=== PATIENT | female | born 1980 | race Caucasian/White ===

== ENCOUNTER 2018-06-15 19:51 | Emergency (ER) | payer MEDICAID, SELFPAY ==
[2018-06-15 20:10] VITALS: BP 125/53; PULSE 71; RESP 16; TEMP 37; O2SAT 98
--- NOTE | 2018-06-15 21:02 | ED.GENADUL ---
Disposition Clinical Impression: Jaw pain, non-TMJ Disposition: HOME Condition: Fair Additional Instructions: Encourage hydration. Tylenol and/or ibuprofen as needed for discomfort. You may take 1000 mg of Tylenol 4 times daily, 600 mg of ibuprofen 4 times daily. May try ice pack or heat to affected area. Please follow-up with primary care for further evaluation. If you develop increased swelling, fever/chills, increased pain or other new/worsening symptoms please seek care urgently once again. Referrals: More Parr MD [Primary Care Provider] - Medical Decision Making - Medical Decision Making Patient presents today with chief complaint of pain under the central submandibular area. She reports that this pain has waxed and waned for quite some time. However, it has been persistent over the past 3 days. No fevers or chills. Is otherwise feeling well. On exam, she is having exquisite tenderness with palpation under the chin. However, I am unable to palpate this area of swelling patient is noting. I do not see any defect in the skin. No discoloration. No area of fluctuance to suggest an abscess. Intraoral exam is without acute abnormality. Advise at this point I do not see any acute pathology. No associated evidence of abscess. I am unable to palpate this abnormality the patient is describing. However, pain is elicited with palpation to the affected area. Advise follow-up with primary care. Advised she may continue with Tylenol and/or ibuprofen as needed for discomfort. All of her questions and concerns were addressed and she is in agreement this plan. History of Present Illness - General Chief complaint: RashLesion Stated complaint: mandibular nodule Time Seen by Provider: 06/15/18 21:02 Source: patient, family, RN notes reviewed Mode of arrival: ambulatory Limitations: no limitations - History of Present Illness Initial comments: Patient is a 38-year-old female presenting today with chief complaint of acute on chronic submandibular pain. She reports that she has noted pain directly under the chin for the past 3 days. She denies any fevers or chills. States that the pain can occasionally radiate laterally towards the right side of the jaw. No fevers or chills. No difficulty speaking, chewing or swallowing. States that she has noted this area to be tender previously. States his pain has waxed and waned for several years but typically is nonexistent. - Related Data Paroxetine HCl [Paxil] 50 mg PO DAILY tab-cap 04/05/13 Naproxen [Naprosyn] 500 mg PO Q12H PRN #60 tab-cap 04/15/13 Allergies Allergy/AdvReac Type Severity Reaction Status Date / Time diphenhydramine HCl Allergy Intermediate Unverified 06/15/18 20:09 [From Benadryl] pseudoephedrine HCl Allergy Intermediate Unverified 06/15/18 20:09 [From Sudafed] Penicillins Allergy Mild Unverified 06/15/18 20:09 aspirin AdvReac Intermediate EPISTAXIS Unverified 06/15/18 20:09 Review of Systems Constitutional: no symptoms reported. denies: chills, fever ENT: as per HPI Respiratory: no symptoms reported Cardiovascular: denies: chest pain Gastrointestinal: denies: nausea, vomiting Skin: denies: rash, lesions, change in color Neurological: denies: headache Past Medical History - Past Medical History Medical history: no medical history Surgical history: no surgical history - Social History Living Situation: lives with family General Exam - General Limitations: no limitations General appearance: alert, in no apparent distress - Head Head exam: Present: atraumatic - Eye Eye exam: Present: normal apperance - ENT ENT exam: Present: normal exam, normal orophraynx, mucous membranes moist, TM's normal bilaterally, normal external ear exam, other (Patient is endorsing pain with palpation directly under the frontal submandibular area. She is feeling swelling. I am unable to appreciate any deformity. No erythema. No opening the skin. No area of fluctuance to suggest an abscess. Intraoral exam is without any abnormality. No swelling noted under the tongue. No pain elicited with palpation over the lingual or buccal area of the gumline. No intraoral swelling.) - Neck Neck exam: Present: normal inspection. Absent: tenderness, lymphadenopathy - Respiratory Respiratory exam: Present: normal lung sounds bilaterally. Absent: respiratory distress - Cardiovascular Cardiovascular Exam: Present: regular rate, normal rhythm, normal heart sounds - Neurological Exam Neurological exam: Present: alert, normal gait - Psychiatric Psychiatric exam: Present: normal affect, normal mood - Skin Skin exam: Present: warm, dry, normal color Course Vital Signs - 24 hr 06/15/18 20:10 Temperature 37.0 C Pulse 71 Respiratory 16 Rate Blood Pressure 125/53 Pulse Oximetry 98
== END 2018-06-15 21:07 | disposition home or self-care (01) ==
PROVIDERS: Emergency Provider Physician Assistant; PCP Family Medicine
DX: R68.84 Jaw pain (principal)
CPT/HCPCS: 99282

== ENCOUNTER 2018-08-18 14:58 | Outpatient (REF) | payer MEDICAID, SELFPAY ==
--- NOTE | 2018-08-18 14:30 | PAPFT_PTH ---
PATIENT: Kimani Perez LOC: [facility] U#:[id number] AGE/SX: 38/F ROOM: RE08/18/[address]: OTILIA Cunha : 1980 BED: DIS: 08/18/2018 SPEC #: [id number] RECD: 08/18/18 17:59 STATUS: CLAUDE REQ #: [id number] MAGY: 08/18/18 14:[address]: Eileen Vaca DEPT: [facility] Cytology RECD BY: Kaylee Renteria ENTERED: 08/18/18 17:59 SP TYPE: PAPFT OTHR DR: More Parr V Tissues: 1 - CX/ENDOCX FOR PAP SMEARS Procedures: PAP THIN PREP/UVM Screening HPV DNA PROBE Comments: [id number]
[2018-08-20 14:27] LABS: Chlamydia Result Negative; GC Result Negative; Specimen Description CERVIX
== END 2018-08-18 15:18 ==
LOC: LBN 14:58
PROVIDERS: PCP Family Medicine; Visit Provider Nurse Practitioner Family
DX: Z11.3 Encounter for screening for infections with a predominantly sexual mode of transmission (principal); Z12.4 Encounter for screening for malignant neoplasm of cervix; Z11.51 Encounter for screening for human papillomavirus (HPV)
CPT/HCPCS: 87491; 87591; 88142; 87624

== ENCOUNTER 2019-08-18 17:24 | Outpatient (REF) | payer MEDICAID, SELFPAY ==
[2019-08-18 20:14] LABS: Abs Immature Grans 0.01 k/cumm (0.0-0.09); Absolute Basophil Count 0.02 k/cumm (0.0-0.2); Absolute Eosinophil Count 0.23 k/cumm (0.0-0.7); Absolute Lymphocyte Count 3.13 k/cumm (1.2-3.4); Absolute Monocyte Count 0.41 k/cumm (0.11-0.7); Absolute Neutrophil Count 3.37 k/cumm (1.2-6.7); Basophils % 0.3; Eosinophils % 3.2; HCT 41.6 % (36.0-46.0); Immature Grans % 0.1; Lymphocytes % 43.7; Mean Corp. HGB Concentration 33.7 g/dL (32.0-36.0); Mean Platelet Volume 10.7 fL (8.0-11.0); Monocytes % 5.7; Platelet Count 237 x1000/uL (130-400); RBC 4.38 m/cumm (4.00-5.20); RBC Distribution Width 12.6 % (11.7-14.6); White Blood Cell Count 7.17 k/cumm (4.4-10.8)
[2019-08-18 20:22] LABS: ALT 23 U/L (14-59); AST 13 U/L (15-37); Albumin 3.9 g/dL (3.4-5.0); Alkaline Phosphatase 80 U/L (46-116); Anion Gap 9.8 mmol/L (3-11); BUN 10 mg/dL (7-18); Bilirubin, Total 0.2 mg/dL (0.2-1.0); CO2 24.2 mmol/L (21.0-32.0); CREATININE 0.65 mg/dL (0.55-1.02); Chloride 104 mmol/L (98-107); Glucose 88 mg/dL (70-100); Potassium 4.5 mmol/L (3.5-5.1); Sodium 138 mmol/L (136-145); Total Protein 6.9 g/dL (6.4-8.2)
== END 2019-08-18 17:44 ==
LOC: NCHCN 17:24
PROVIDERS: PCP Family Medicine; Visit Provider Physician Assistant Medical
DX: K21.9 Gastro-esophageal reflux disease without esophagitis (principal)
CPT/HCPCS: 80053; 85025

== ENCOUNTER 2020-04-10 00:38 | Outpatient (CLI) | payer MEDICAID, SELFPAY ==
--- NOTE | 2020-04-10 | DI.US_ITS ---
EXAM: US THYROID CLINICAL HISTORY: ENLARGED THYROID, E04.9. TECHNIQUE: Ultrasound thyroid performed using standard protocol. COMPARISON: No exams were available for comparison FINDINGS: The right lobe measures 4.6 x 1.0 x 1.4 cm. There is a 3 mm cystic well-circumscribed nodule in the upper pole. There is normal blood flow to the right lobe of the thyroid gland. No suspicious right thyroid nodules are seen. The left lobe measures 4.2 x 1.0 x 1.5 cm. There is a solid avascular 4 mm isoechoic nodule in the u pper pole. Nodule is round with well-circumscribed smooth borders. No echogenic foci are seen. No suspicious left thyroid nodules are seen. There is normal blood flow to the left lobe of the thyroid gland. The isthmus is within normal limits at 1.8 mm. IMPRESSION: No suspicious thyroid nodules. No evidence of thyromegaly. DATA REPOSITORY:
== END 2020-04-10 00:58 ==
PROVIDERS: PCP Family Medicine; Visit Provider Physician Assistant Medical
DX: E07.89 Other specified disorders of thyroid (principal); E04.2 Nontoxic multinodular goiter
CPT/HCPCS: 76536

== ENCOUNTER 2021-12-03 15:45 | Outpatient (REF) | payer MEDICAID, SELFPAY ==
--- NOTE | 2021-12-03 15:30 | PAPFT_PTH ---
PATIENT: Kimani Perez LOC: [facility] U#:[id number] AGE/SX: 41/F ROOM: RE12/03/[address]: OTILIA Cunha : 1980 BED: DIS: 12/03/2021 SPEC #: [id number] RECD: 12/03/21 18:19 STATUS: NISSARajesh REDonald #: [id number] MAGY: 12/03/21 15:[address]: Eileen Vaca DEPT: [facility] Cytology RECD BY: Kaylee Renteria ENTERED: 12/03/21 18:19 SP TYPE: PAPFT OTHR DR: More Parr V Tissues: 1 - CX/ENDOCX FOR PAP SMEARS Procedures: PAP THIN PREP/UVM Screening HPV DNA PROBE Comments: [id number]
[2021-12-05 15:31] LABS: Chlamydia Result Negative (Negative); GC Result Negative (Negative)
== END 2021-12-03 15:46 | disposition home or self-care (01) ==
LOC: LBN 15:45
PROVIDERS: PCP Family Medicine; Visit Provider Nurse Practitioner Family
DX: Z11.3 Encounter for screening for infections with a predominantly sexual mode of transmission (principal); Z12.4 Encounter for screening for malignant neoplasm of cervix; Z11.51 Encounter for screening for human papillomavirus (HPV)
CPT/HCPCS: 87491; 87591; 88142; 87624

== ENCOUNTER 2021-12-25 14:58 | Outpatient (REF) | payer MEDICAID, SELFPAY ==
[2021-12-25 19:36] LABS: Abs Immature Grans 0.01 10^3/uL (0.0-0.06); Absolute Basophil Count 0.03 10^3/uL (0.0-0.2); Absolute Eosinophil Count 0.19 10^3/uL (0.0-0.7); Absolute Lymphocyte Count 3.27 10^3/uL (1.2-3.4); Absolute Monocyte Count 0.44 10^3/uL (0.1-0.8); Basophils % 0.4; Eosinophils % 2.3; HCT 38.7 % (36.0-46.0); Immature Grans % 0.1; Lymphocytes % 39.2; MCH 32.4 pg (27.0-33.0); MCHC 33.6 % (32.0-36.0); MCV 96.5 fL (80-95); MPV 11.3 fL (8.0-11.0); Monocytes % 5.3; Neutrophils % 52.7; Nucleated RBC 0 %; Platelet Count 221 10^3/uL (130-400); RBC 4.01 10^6/uL (3.93-5.22); RDW 12.5 % (11.7-14.6); RDW-SD 44.9 fL; WBC 8.34 10^3/uL (4.4-10.8)
[2021-12-25 19:46] LABS: ALT 14 U/L (14-59); AST 16 U/L (15-37); Albumin 3.7 g/dL (3.4-5.0); Alkaline Phosphatase 72 U/L (46-116); Anion Gap 10.3 mmol/L (3-11); BUN 12 mg/dL (7-18); Bilirubin, Total 0.2 mg/dL (0.2-1.0); CO2 24.7 mmol/L (21.0-32.0); CREATININE 0.7 mg/dL (0.55-1.02); Calcium 8.9 mg/dL (8.5-10.1); Chloride 104 mmol/L (98-107); Glucose 93 mg/dL (74-106); Lipase 79 U/L (73-393); Potassium 4.2 mmol/L (3.5-5.1); Sodium 139 mmol/L (136-145); Total Protein 6.6 g/dL (6.4-8.2)
== END 2021-12-25 14:59 | disposition home or self-care (01) ==
LOC: NCHCN 14:58
PROVIDERS: PCP Family Medicine; Visit Provider Physician Assistant Medical
DX: K21.9 Gastro-esophageal reflux disease without esophagitis (principal)
CPT/HCPCS: 80053; 83690; 85025

== ENCOUNTER 2021-12-27 01:34 | Outpatient (CLI) | payer MEDICAID, SELFPAY ==
--- NOTE | 2021-12-27 09:30 | DI.US_ITS ---
Exam(s) US ABDOMEN EXAM: US ABDOMEN INDICATION: GERD, K21.9 COMPARISON: US US THYROID from 04/10/2020 TECHNIQUE: Ultrasound abdomen performed using standard protocol FINDINGS: Abdominal ultrasound was performed according to the usual protocol. The liver is normal in size and shape. No focal hepatic lesion seen. There is no evidence of cholelithiasis or biliary dilatation. No gallbladder wall thickening or peric holecystic fluid collection. Portal venous flow is hepatopetal. Pancreas appears intact as visualized. Spleen is unremarkable in appearance with no focal lesion. Kidneys are normal in size and shape. No renal mass, hydronephrosis, or nephrolithiasis. Abdominal aorta and IVC are of normal diameter. IMPRESSION: Negative abdominal ultrasound .
== END 2021-12-27 01:54 ==
PROVIDERS: PCP Family Medicine; Visit Provider Physician Assistant Medical
DX: K21.9 Gastro-esophageal reflux disease without esophagitis (principal)
CPT/HCPCS: 76700

== ENCOUNTER → 2022-05-20 01:40 | Outpatient (CLI) | payer MEDICAID, SELFPAY | PROVIDERS: PCP Family Medicine; Visit Provider Nurse Practitioner Family ==

== ENCOUNTER 2022-08-09 00:51 | Outpatient (CLI) | payer MEDICAID, SELFPAY ==
--- OUTSIDE RECORDS SUMMARY | 2022-08-09 00:53 | XMS_ITS | Encounter Summary ---
:1980 Author Organization [facility] Address [address] [place] [address] Care Team Providers Name Role Phone BooneKristina Nani PHP DEVELOPER Primary Care Provider Encounter Details Date Type Department Care Team Description 02/17/2007 Results Only [facility] - Kristina Oliveros CNM [facility] [address] [place] [address] Social History Tobacco Use Types Packs/Day Years Used Date Never Assessed Sex Assigned at Date Recorded Not on file documented as of this encounter Plan of Treatment Not on filedocumented as of this encounter Procedures Procedure Name Priority Date/Time Associated Diagnosis Comme nts CYTOPATHOLOGY Routine 02/17/2007 0:00 EDT Results for this procedure are i n the results section . documented in this encounter Results CYTOPATHOLOGY (02/17/2007 0:00 EDT) Pathology Report: CYTOPATHOLOGY REPORT [facility] Reports generated via electronic interface contain zuly ginal data; however they are lacking the format of the original re port. Caution should be taken when reading/interpreting unfo rmatted reports. Name: ? KIMANI PEREZ ? Accession #: ? [id number] : ? 1980 (Age: 27) ??F ?Collect Date: ? 05/0 10/2006 Location: ? [facility] ? Receive Date : ? 02/19/2007 Provider: ?KRISTINA MACKEY CNM Copy to: ? Specimen/Source: ? ThinPrep Pap Test, Cervix/Endocervix, processed on [employer] ThinPrep Imaging System, with manual evaluation Last Menstrual Period: ? 01/10/07 Other: ? HPVA - HPV testing requested if ASC-US on the current ThinPrep Pap test. ? SPECIMEN ADEQUACY ? Satisfactory for Evaluation - transformation zone component present GENERAL CATEGORIZATION ? Negative for Intraepithelial Lesion or Malignan cy ? Document reviewed and electronically signed by: ? LEONARD Mena(ASCP) ? Report Date: ??02/23/2007 11:43 End of Report Specimen Performing Organization Address City/State/ZIP Code Phon e Number [facility] [address] [place] [address] [facility] [address] [place] [address] documented in this encounter Visit Diagnoses Not on filedocumented in this encounter Care Teams Rug Cleaning Supervisor Relationship Specialty Start Date End Date Kristina Shook NP PCP - General 07/18/09 [facility] [address] [place], [place] [address] documented as of this encounter
--- OUTSIDE RECORDS SUMMARY | 2022-08-09 00:53 | XMS_ITS | Encounter Summary ---
:1980 Author Organization [facility] Address [address] [place] [address] Care Team Providers Name Role Phone Kristina Shook LUZ MARIA Primary Care Provider Encounter Details Date Type Department Care Team Description 11/06/[address] [facility] - Alvarado Moore MD conversion [address] [place] [address] Social History Tobacco Use Types Packs/Day Years Used Date Never Assessed Sex Assigned at Date Recorded Not on file documented as of this encounter Plan of Treatment Not on filedocumented as of this encounter Procedures Procedure Name Priority Date/Time Associated Diagnosis Comme nts SURGICAL PATHOLOGY Routine 11/06/2006 0:00 EST Re sults for this procedure are i n the results section. documented in this encounter Results SURGICAL PATHOLOGY (11/06/2006 0:00 EST) Pathology Report: SURGICAL PATHOLOGY REPORT [facility] Reports generated via electronic interface contain zuly ginal data; LAB however they are lacking the format of the original re port. Caution should be taken when reading/interpreting unfo rmatted reports. Name: ? KIMANI PEREZ ? Accession #: ? [id number] ? : ? 1980 (Age: 26) ??F ? Collect Date: ? 11/06/2006 ? Location: ? [facility] ? Receive Date: ? 007 ? Provider: ALVARADO FERNANDEZ MD Copy to: ? Final Pathologic Diagnosis: ? Soft tissue, present in vaginal vault, evacuati on: 1. ?Necrotic ti ssue with fibrinous exudate and unorganized blood clot with focal acute and chronic inflammatory cell debris with hemosiderin. 2. ? No viable chorionic villi, trophoblasti c or tissue identified. Document reviewed and electronically signed by: KIARRA PABON MD Report ??Date: 11/10/2006 21:28 By the signature above, the attending physician certif ies that he/she has personally conducted a gross and/or microscopic examin ation of the described specimens and rendered or confirmed the above diagnosi s. Specimen(s) Received: ? Mass passed from vagina Clinical History: ? 14 weeks , tissue passed per vagi na, clot seen on U/S in early ; prob passed now Gross Description: ? Received in formalin labelled Perez and vag vault is a 7.5 x 6.5 x 1.5 cm aggregate of pale red-jiménez blood clot as well as 2.5 x 2.0 x 1.0 cm aggregate of light jiménez mucin ous material. ??Sections reveal no discernible parts, villous-like tissue, or decidua. ??Animal Scientist sections are submitted as (A1) to (A3). ??([facility] End of Report Specimen Performing Organization Address City/State/ZIP Code Phon e Number [facility] [address] [place] [address] [facility] [address] [place] [address] documented in this encounter Visit Diagnoses Not on filedocumented in this encounter Care Teams Tax Associate Attorney Relationship Specialty Start Date End Date Kristina Shook NP PCP - General 07/18/09 [facility] [address] [place] [address] documented as of this encounter
--- OUTSIDE RECORDS SUMMARY | 2022-08-09 00:53 | XMS_ITS | Encounter Summary ---
:1980 Author Organization [facility] [place] [address] Care Team Providers Name Role Phone Kristina Willard APRN Primary Care Provider Reason for Visit Reason Comments Low Back Pain right buttocks Encounter Details Date Type Department Care Team Description 09/17/2011 Office Visit Pain Management at Jennifer Ellsworth DO Sacroiliitis (Primary [facility] Dx) [facility] [place] [phone] Social History Tobacco Use Types Packs/Day Years Used Date Current Every Day Smoker Sex Assigned at Date Recorded Not on file documented as of this encounter Last Filed Vital Signs Vital Sign Reading Time Taken Comments Blood Pressure 103/63 09/17/2011 2:08 PM EST Pulse 73 09/17/2011 2:08 PM EST Temperature - - Respiratory Rate 16 09/17/2011 2:08 PM EST Oxygen Saturation 98% 09/17/2011 2:08 PM EST Inhaled Oxygen Concentration - - Weight - - Height 163.8 cm (5' 4.5) 09/17/2011 1:00 PM EST Body Mass Index - - documented in this encounter Patient Instructions Patient InstructionsLashell Blas RN - 09/17/2011 1:53 PM EST Pain Management Center Discharge Instructions: You were seen by Dr. Jennifer Ellsworth DO and Dr. Ben Hernández who performed right SI joint injection. [x] You may resume your normal activities: tomorrow. You may shower today. DO NOT tub bathe, use whirlpools, hot tubs or pool therapy for 2 days. Remove Band-Aid(s) later today/tomorrow. Do not drive until tomorrow. Use caution walking/climbing stairs as you may be unsteady on your feet. You may use your usual medications, including pain medications, as directed, unless otherwise instructed. You may use an ice pack as needed for the first 24 hours, on for 20 minutes then off for 20 minutes.Do not apply heat today. Attempt to empty your bladder 4-6 hours after your procedure. You received the following medications: Lidocaine, Omnipaque (contrast dye) and Triamcinolone 40 mg. During regular business hours, please phone the Pain Management Center at for appointments or with any questions or if the following or other troubling symptoms develop: 2) Localized swelling, redness or drainage at the injection site(s). 3) Temperature of 101 degrees that lasts for more than 4 hours. After 5 PM or on weekends, call and ask for Pain Clinic provider on-call. If you are unable to reach the Pain Management Center and have a complication, please call your Primary Care Provider or proceed to your local emergency department. Lashell Blas RNpaid intern Center Post -Procedure Pain Log Patient: Kimani Perez [id number] It is important for you to keep track of your pain after your procedure that took place 09/17/2011. This information will help your Provider to determine how to help reduce your pain. Today you had a procedure for pain in your right buttocks. Your pain level before the procedure in this area was 5/10. Your pain level immediately after your procedure was 0/10. Time Pain Score Comments 1 hour 2 hours 3 hours 4 hours Please call the nurse in the Pain Management Center a day or two after your procedureand report the information above. She will assess your response to the procedure, and will recommendappropriate follow-up. documented in this encounter Progress Notes Jennifer Ellsworth, DO - 09/18/2011 4:56 AM EST I was the attending physician supervising the resident in the above care and I was present with the resident for the entire procedure. DO Eddie Lara [facility] [place] [id number] Dept: [phone] Lashell Blas RN - 09/17/2011 1:49 PM EST Pre-Procedure Screening Questions: 1. Status: No 2. 3. Patient states they have a emergency medical technician/driver to transport after procedure? Yes 4. Patient taking antibiotics at present? No 5. NPO per Pain Management Center protocol? No 6. 7. Patient diabetic: No 8. Patient routinely taking anticoagulants ? No Patient Vital Signs documented in Doc Flowsheets associated with this encounter. Patient Discharge Instructions were reviewed with patient and copy provided to patient. documented in this encounter Procedure Notes Ben Hernández MD - 09/17/2011 2:16 PM ESTAssociated Order(s): SI JOINT INJECTION Pre-Procedure Diagnose(s): Sacroiliitis INTRA-ARTICULAR SI JOINT INJECTION Date of Service: 09/17/2011 Patient: Kimani Perez Provider: BEN HERNÁNDEZ MD Kimani Perez has been referred to the Pain Management Center for intra- articular SI joint injection. COMMENTS: repeat R sided SI joint injection. Kimani Perez was interviewed and the medical record reviewed. There were no medical, pharmacologic, radiographic or other structural contraindications to attempting fluoroscopically guided intra-articular SI joint injection. Risks and expected side effects as well as potential benefit of the procedure were reviewed with Kimani Perez, and she voiced concerns addressed. The printed consent form was signed and witnessed. Standard time-out procedure was performed. Kimani Perez was placed in the prone position on the fluoroscopy table and automated blood pressure cuff and pulse oximeter applied. The skin entry point for approaching R SI joints was identified under the most advantageous fluoroscopic view and marked. Following thorough Chlorhexadine preparationof the skin and draping and 1% lidocaine infiltration of the skin entry point and subcutaneous tissues, a 22 gauge spinal needle was placed under fluoroscopic guidance into the R SI joint. Intra-articular placement was confirmed by a clear arthrogram resulting from the injection of 0.25ml Omnipaque 240. 2 ml 1% lidocaine and 40mg triamcinalone was injected intra-articularily with an initial reproduction of a significant component of the usual pain. Kimani Perez's vital signs were stable throughout the procedure and were as recorded in the docflowsheet by the nursing staff. If given, dosages of intravenous drugs for anxiolysis and analgesia were documented in MAR. Follow up plans and appointments were discussed with the Ms. Perez. Post procedure instruction wasgiven as documented in nursing documentation and having met discharge criteria, she was discharged from the Pain Management Center. COMMENTS: no complications. Return prn. CC: KRISTINA WILLARD APRN [email or web address] Ben Hernández MD, Pain Medicine Fellow documented in this encounter Miscellaneous Notes Miscellaneous - Jp, Curriculum And Instruction Director - 09/24/2011 10:23 AM EST documented in this encounter Plan of Treatment Not on filedocumented as of this encounter Results SI JOINT INJECTION (09/17/2011 2:19 PM EST) Jennifer Ellsworth DO PROCEDURE/MINOR SURGICAL ORD ERABLES documented in this encounter Visit Diagnoses Diagnosis Sacroiliitis - Primary Sacroiliitis, not elsewhere classified documented in this encounter Administered Medications Inactive Administered Medications - up to 3 most recent administrations Medication Order MAR Action Action Date Dose Rate Site iohexol (OMNIPAQUE) injection 1 mL Given 09/17/2011 2:18 PM EST 1 mL 1 mL, Other, ONCE PRN, 1 dose, Starting on Fri09/17/11 at 1412, Until Fri09/17/11 at 1418, Per Protocol, Routine triamcinolone acetonide (KENALOG-40) injection Given 1 11/17/2010 2:30 PM EST 40 mg 40 mg 40 mg, Intra-articular, ONCE, 1 dose, On Fri09/17/11 at 1430, Routine documented in this encounter Care Teams Lead Developer Relationship Specialty Start Date End Date Kristina Willard APRN PCP - General 09/11/10 06/16/12 documented as of this encounter
--- OUTSIDE RECORDS SUMMARY | 2022-08-09 00:53 | XMS_ITS | Encounter Summary ---
:1980 Author Organization [facility] Address [address] [place] [address] Care Team Providers Name Role Phone Kristina Shook STOPPERER ASSEMBLER Primary Care Provider Encounter Details Date Type Department Care Team Description 12/07/2004 Results Only [facility] - Richardson New MD conversion [address] [place] [address] Social History Tobacco Use Types Packs/Day Years Used Date Never Assessed Sex Assigned at Date Recorded Not on file documented as of this encounter Plan of Treatment Not on filedocumented as of this encounter Procedures Procedure Name Priority Date/Time Associated Diagnosis Comme [facility] SURGICAL PATHOLOGY Routine 12/07/2004 0:00 EST Re sults for this procedure are i n the results section. documented in this encounter Results SURGICAL PATHOLOGY (12/07/2004 0:00 EST) Pathology Report: SURGICAL PATHOLOGY REPORT [facility] Reports generated via electronic interface contain zuly ginal data; LAB however they are lacking the format of the original re port. Caution should be taken when reading/interpreting unfo rmatted reports. Name: ? KIMANI PEREZ ? Accession #: ? [id number] ? : ? 1980 (Age: 24) ??F ? Collect Date: ? 12/07/2004 ? Location: ? [facility] ? Receive Date: ? 005 ? Provider: RICHARDSON MANRIQUEZ MD Copy to: ALEJO PEDRAZA ROLL SCALE MAN ? Final Pathologic Diagnosis: ? Intrauterine contents, evacuation: 1. ?Immature chorionic villi. 2. ?Decidua. 3. ?Gestational endometrium. Document reviewed and electronically signed by: Skye Wilde MD Report ??Date: 12/11/2004 15:39 By the signature above, the attending physician certif ies that he/she has personally conducted a gross and/or microscopic examin ation of the described specimens and rendered or confirmed the above diagnosi s. Specimen(s) Received: ? Products of conception Clinical History: ? Missed Gross Description: ? Received in formalin labelled Perez and products of conception are multiple fragments of jiménez-pink soft tiss ue. ??Prominent villi are noted. ??The largest portion of villous tissue measur es 5.5 x 1.5 x 1.0 cm. ??The fragments measure in aggregate 11.0 x 8.0 x 0.5 cm. ??No p arts are identified. Aemt sections are submitted as follows: BLOCK JENKINS A1, A2 ?Aemt section of villous tissue A3 ?Aemt section of remaining f kendrick (Dr. Allen)/[facility] End of Report Specimen Performing Organization Address City/State/ZIP Code Phon e Number [facility] [address] [place] [address] [facility] [address] [place] [address] documented in this encounter Visit Diagnoses Not on filedocumented in this encounter Care Teams Security Technician Relationship Specialty Start Date End Date Kristina Shook NP PCP - General 07/18/09 [facility] [address] [place] [address] documented as of this encounter
--- OUTSIDE RECORDS SUMMARY | 2022-08-09 00:53 | XMS_ITS | Encounter Summary ---
:1980 Author Organization [facility] Address [address] [place] [address] Care Team Providers Name Role Phone BaileyKristina rosas Nani SPECIALTY DEVELOPMENT CONSULTANT Primary Care Provider Encounter Details Date Type Department Care Team Description 04/05/2013 Results Only [facility] Shekhar Vaca, [facility] Laboratory Services - [address] Barreto [address] [address] [place] [address] [phone] Social History Tobacco Use Types Packs/Day Years Used Date Never Assessed Sex Assigned at Date Recorded Not on file documented as of this encounter Plan of Treatment Not on filedocumented as of this encounter Procedures Procedure Name Priority Date/Time Associated Diagnosis Comme nts PAP TEST- RESULT Routine 04/05/2013 0:00 EDT Resu lts for this ONLY procedure are i n the results section. documented in this encounter Results PAP TEST- RESULT ONLY (04/05/2013 0:00 EDT) Pathology Report: CYTOPATHOLOGY REPORT [facility] Reports generated via electronic interface contain zuly ginal data; however they are lacking the format of the original re port. Caution should be taken when reading/interpreting unfo rmatted reports. Name: ? KIMANI PEREZ ? Accession #: ? [id number] ? : ? 1980 (Age: 33) ??F ?Collect Da te: ? 04/05/2013 ? Location: ? [facility] ? Receive Date: ? 013 ? Provider: ALEJO VACA SENIOR INFORMATICA DEVELOPER Copy to: SCOTT PÉREZ MD ? Final Report SPECIMEN ADEQUACY ? Satisfactory for Evaluation - transformation zone component present GENERAL CATEGORIZATION ? Negative for Intraepithelial Lesion or Malignan cy ?? Hormonal/Contraceptive status: Intrauterine device: Mi denisha Specimen/Source: ??Pap Test, Cervix/Endocervix, ThinPr ep Imaging System with manual evaluation Document reviewed and electronically signed by: ? Scotty Ortez, CT(ASCP) ? Report ??Date: 04/10/2013 12:14 HPV with Pap Test ? Date Ordered: ? 04/10/2013 ? Status: ?? Signed Out ?Date Complete: ? 04/13/2013 ? By: ??S ystem Interface ? Date Reported: ? 04/13/2013 ? Interpretation RESULT: Negative for HPV. No E6 or E7 mRNA is detected from HPV types 16,18,31,3 3,35, 39,45,51,52,56,58,59,66, and 68 by flat surfacer jewel media tali amplification. Comments Document reviewed and electronically signed by: ? System Interface ? Report date: 04/13/2013 By the signature above, the attending physician certif ies that he/she has personally conducted a gross and/or microscopic examin ation of the described specimens and rendered or confirmed the above diagnosi s. End of Report Specimen Performing Organization Address City/State/ZIP Code Phon e Number [facility] [address] [place] [address] SERVICES [facility] [address] [place] [address] documented in this encounter Visit Diagnoses Not on filedocumented in this encounter Care Teams Technician Support Engineer Relationship Specialty Start Date End Date Kristina Shook NP PCP - General 07/18/09 [facility] [address] [place] [address] documented as of this encounter
--- OUTSIDE RECORDS SUMMARY | 2022-08-09 00:53 | XMS_ITS | Encounter Summary ---
:[address] [facility] Address [address] [place] [address] Care Team Providers Name Role Phone Kristina Shook MUCK MINER BLASTING Primary Care Provider Encounter Details Date Type Department Care Team Description 07/04/2003 Results Only [facility] - Eileen Guerra od, SCREEN PRINT OPERATOR conversion [address] [place] [phone] (Wo rk) Social History Tobacco Use Types Packs/Day Years Used Date Never Assessed Sex Assigned at Date Recorded Not on file documented as of this encounter Plan of Treatment Not on filedocumented as of this encounter Procedures Procedure Name Priority Date/Time Associated Diagnosis Comme nts CYTOPATHOLOGY Routine 07/04/2003 0:00 EDT Results for this procedure are i n the results section . documented in this encounter Results CYTOPATHOLOGY (07/04/2003 0:00 EDT) Pathology Report: CYTOPATHOLOGY REPORT [facility] Reports generated via electronic interface contain zuly ginal data; however they are lacking the format of the original re port. Caution should be taken when reading/interpreting unfo rmatted reports. Name: ? KIMANI PEREZ ? Accession #: ? [id number] : ? 1980 (Age: 23) ??F ?Collect Date: ? 06/20 Location: ? [facility] ? Receive Date : ? 07/06/2003 Provider: ?EILEEN MILO SCREEN PRINT OPERATOR Copy to: ? Specimen/Source: ?ThinPrep Pap Test, Cervix/ Endocervix Last Menstrual Period: ? 06/03/03 Hormonal/Contraceptive Status: ? Oral contraceptives ? SPECIMEN ADEQUACY ? Satisfactory for Evaluation - transformation zone component present - scant squamous epithelial component secondary to exc essive mucus GENERAL CATEGORIZATION ? Negative for Intraepithelial Lesion or Malignan cy ? Document reviewed and electronically signed by: ? LEONARD Lima(ASCP) ? Report Date: ??07/12/2003 08:37 End of Report Specimen Performing Organization Address City/State/ZIP Code Phon e Number [facility] [address] [place] [address] SERVICES [facility] [address] [place] [address] documented in this encounter Visit Diagnoses Not on filedocumented in this encounter Care Teams Compounding Scaler Relationship Specialty Start Date End Date Kristina Shook NP PCP - General 07/18/[address] [facility] [address] [place], [place] [address] documented as of this encounter
--- OUTSIDE RECORDS SUMMARY | 2022-08-09 00:53 | XMS_ITS | Encounter Summary ---
:1980 Author Organization [facility] [place] [address] Care Team Providers Name Role Phone More Parr MD Primary Care Provider Encounter Details Date Type Department Care Team Description 10/27/2012 Surgery G[facility]enterology at [facility] Rahul Quinones, UPPER GI ENDOSCOPY [facility] [place] [address] [facility] [phone] GASTROENTEROLOGY [place] [address] (Wo rk) Social History Tobacco Use Types Packs/Day Years Used Date Current Every Day Smoker Sex Assigned at Date Recorded Not on file documented as of this encounter Last Filed Vital Signs Vital Sign Reading Time Taken Comments Blood Pressure 91/42 10/27/2012 3:05 PM EST Pulse 71 10/27/2012 3:05 PM EST Temperature 36.5 ??C (97.7 ??F) 10/27/2012 1:44 PM EST Respiratory Rate 16 10/27/2012 3:05 PM EST Oxygen Saturation 94% 10/27/2012 3:05 PM EST Inhaled Oxygen Concentration - - Weight - - Height - - Body Mass Index - - documented in this encounter Discharge Instructions Discharge Avis De La Torre RN - 10/27/2012 3:05 PM EST You may have received medications before and/or during your procedure which effects judgement and reaction time. Do not drive, operate machinery, drink alcoholic beverages or make important decisions for 24 hours. Be careful on stairs as you may be unsteady on your feet. You may eat a regular diet as tolerated. Do not smoke if you are alone. IV site-- slight redness or tenderness is normal. You may use a warm compress. If tenderness and redness increases or foul drainage occurs, please contact your MD/ Please call [phone] before 5pm with problems, questions or concerns. After 5pm call [phone] and ask to speak with the core filer adjunct communications faculty member. Discharge instructions reviewed with patient who expresses understanding. AttachmentsThe following attachments cannot be sent through Care Everywhere. COLONOSCOPY: WHAT TO EXPECT AT HOME (MALIAN)UPPER GI ENDOSCOPY: WHAT TO EXPECT AT HOME (MALIAN)documented in this encounter Medications at Time of Discharge Medication Sig Dispensed Refills Start Date End Date RANITIDINE HCL (ZANTAC Take 1 tablet by 0 ORAL) mouth as needed. ibuprofen (ADVIL;MOTRIN) 600MG = 1 Tablet(s), 0 0 06/21/2010 600 mg tablet PO, Q6H PARoxetine (PAXIL) 20 mg 20MG = 1 Tablet(s), 0 08/28/2015 tablet PO, Once daily documented as of this encounter H&P Notes Rahul Quinones MD - 10/27/2012 1:26 PM EST Gastroenterology and Hepatology Pre-Procedure History and Physical Exam Procedure: Colonoscopy: EGD Indication: diarrhea/GERD Patient Active Problem List Diagnoses Code ??? IBS (irritable bowel syndrome) 564.1 EXAM: HEENT: Airway examined, oropharynx clear LUNGS: Clear to auscultation HEART: Regular rate and rhythm, normal S1, S2 ABDOMEN: Normal bowel sounds, soft, non tender, non distended, A/P Proceed with the planned endoscopic procedure. Risks and benefits of the procedure explained to the patient. Consent signed. documented in this encounter Miscellaneous Notes Lew - Provider, Scanning - 10/27/2012 9:30 PM EST Miscellaneous - Provider, Scanning - 10/27/2012 5:28 PM EST documented in this encounter Plan of Treatment Not on filedocumented as of this encounter Procedures Procedure Name Priority Date/Time Associated Comments Diagnosis SURGICAL PATHOLOGY Routine 10/27/2012 3:44 PM Res ults for this REPORT EST procedure are i n the results section. SPECIMEN TO PATHOLOGY Routine 10/27/2012 2:57 PM Results for this EST procedure are i n the results section. SPECIMEN TO PATHOLOGY Routine 10/27/2012 2:57 PM Results for this EST procedure are i n the results section. COLONOSCOPY Routine 10/27/2012 2:35 PM FLEXIBLE-WITH BX EST (MSCHAD) COLONOSCOPY FLEXIBLE, 10/27/2012 2:15 PM gerd/chronic WITH BX (WRVU 3.66) EST diarrheah ? ibs/colitis UPPER GI ENDOSCOPY 10/27/2012 2:15 PM gerd/chronic EST diarrheah ? ibs/colitis COLONOSCOPY Routine 10/27/2012 2:12 PM Results f or this EST procedure are i n the results section. UPPER GI ENDOSCOPY Routine 10/27/2012 2:12 PM Res ults for this EST procedure are i n the results section. documented in this encounter Results Surgical Pathology Report (10/27/2012 3:44 PM EST) [facility] gist Method Time Signature Surgical CERNER Pathology ? [facility] Report ? Provider: ?? RAHUL QUINONES ?Pt. Name: ?? KARLY ROSE, KIMANI Kuhn ? Acc #: ?[id number] ?Pt. MRN: ?[id number] ? Col Date: ?? 10/27/2012 ?/Sex: ?1980,(32 years),Female ? Rec Date: ?? 10/27/2012 ?LOC: ?4T ? SURGICAL PATHOLOGY ? ---Pathologic Diagnosis--- ? Endoscopic biopsies - ? A. Colonic mucosa within normal limits. ? B. Duodenal mucosa within normal limits, including preserved villous ? architecture. ? CR-0 ? 10/28/12 ? AAS ? 10/28/12 Verified by: ? Tom Duque MD ? Pathologist ? (Electronic Si gnature) ? The attending pathologist whose signature appears o n this report has ? reviewed all diagnostic slides and has edited the messi ss and/or ? microscopic portion of the report in rendering the fi nal pathologic ? diagnosis. ? ---Microscopic Description--- ? Slides reviewed, microscopic description not recorded . ? ---Gross Description--- ? A - Labeled/Fixative: Biopsy of normal-appearing colo n, formalin. ? Qty/Size/Weight: ?Multiple, ranging from 0.2 c m to 0.3 cm in ? greatest dimension. ? Tissue Description: ?? Soft, pink-jiménez tissues. ? Sections/Processing: ??(T2) ? B - Labeled/Fixative: Biopsy of duodenum, formalin. ? Qty/Size/Weight: ?Four, ranging from 0.2 cm to 0.4 cm in ? greatest dimension. ? Tissue Description: ?? Soft, jiménez tissues. ? Sections/Processing: ??(T1) ??vms/EJR ? ---Clinical Information--- ? Specimen Submitted: ? A - Bx of normal appearing colon ? B - Bx of duodenum ? Clinical History/Diagnosis: ? Pt with diarrhea Specimen (Source) Anatomical Collection Method Collection Time Re ceived Time Location / / Volume Laterality 10/27/2012 3:44 PM EST Rahul Quinones MD PATHOLOGY/CYTOLOGY ORDERABLE S Performing Organization Address [facility]/[place] [address] CERNER MILLENNIUM Specimen to Pathology (surgical or derm) (10/27/2012 2:57 PM EST) Specimen Anatomical Collection Method Collection Time Receive d Time (Source) Location / / Volume Laterality AP Specimen 10/27/2012 2:57 PM 3 2:57 EST PM EST Narrative CERNER MILLENNIUM - 10/27/2012 2:[address] Specimen requisition ordered. ??Separate Pathology report to follow Rahul Quinones MD PATHOLOGY/CYTOLOGY ORDERABLE S Performing Organization Address [facility]/[place] [address] CERNER MILLENNIUM Specimen to Pathology (surgical or derm) (10/27/2012 2:57 PM EST) Specimen Anatomical Collection Method Collection Time Receive d Time (Source) Location / / Volume Laterality AP Specimen 10/27/2012 2:57 PM 3 2:57 EST PM EST Narrative CERNER MILLENNIUM - 10/27/2012 2:[address] Specimen requisition ordered. ??Separate Pathology report to follow Rahul Quinones MD PATHOLOGY/CYTOLOGY ORDERABLE S Performing Organization Address City/[facility]/ZIP [facility] [place] [address] CERNER MILLENNIUM COLONOSCOPY (10/27/2012 2:12 PM EST) [employer] Method Time Signature COLONOSCOPY [facility] Endoscopy Patient Name: Kimani Perez ? Procedure Date: 10/27/2012 2:12 PM ? Date of : 1980 ? Age: 32 ? Order #: [id number] ? Procedure: ? Colonoscopy Indications: ? chronic diarrhea and abdominal pain Providers: ? Rahul Quinones MD Referring : ?More Parr MD, Benny marcano, ? MD Medicines: ? Midazolam 4 mg IV, Fentanyl 250 ? micrograms IV Complications: ? No immediate complications. Procedure: ? Pre-Anesthesia Assessment: ? - ASA Grade Assessment: I - A normal, ? healthy patient. ? The procedure, indications, b enefits, ? risks and alternatives were e xplained ? to the patient. Specifically ? discussed were potential ? complications including, but not ? limited to, bleeding, perfora tion, ? infection, missing a cancer, and ? adverse medication reactions. The ? patient was placed in the lef t ? lateral decubitus position, a nd a ? digital rectal exam was perfo rmed. ? The Colonoscope was inserted in the ? anus and under direct visuali zation, ? advanced to the terminal ileu m. ? Careful inspection was made a s the ? colonoscope was withdrawn. Th e ? colonoscopy was performed wit hout ? difficulty. The patient johnny ated the ? procedure well. The quality o f the ? bowel preparation was excelle nt. ? Scope withdrawal time was 12 minutes. ? Findings: ? The colon mucosa (entire examined portion) appeared ? normal. Biopsies were taken with a cold forceps for ? histology. The terminal ileum appeared normal. ? Internal hemorrhoids were found during retroflexion ? and were small. ? Impression: ?- The entire examined colon is ? normal. This was biopsied. ? - The examined portion of the ileum ? was normal. ? - Internal hemorrhoids. ? Sx are most c/w IBS, which re sponds to ? immodium Recommendation: ?- Await pathology results. ? Rahul Quinones MD 10/27/2012 2:46 PM This report has been signed electronically. Number of Addenda: 0 Note Initiated On: 10/27/2012 2:12 PM Specimen (Source) Anatomical Collection Method Collection Time Re ceived Time Location / / Volume Laterality 10/27/2012 2:12 PM EST More Parr MD GENERAL SURGICAL ORDERABLES Performing Organization Address City/State/ZIP [facility] Phon e Number [facility] UPPER GI ENDOSCOPY (10/27/2012 2:12 PM EST) [facility] gist Method Time Signature UPPER GI [facility] ENDOSCOPY Endoscopy Patient Name: Kimani Perez ? Procedure Date: 10/27/2012 2:12 PM ? Date of : 1980 ? Age: 32 ? Order #: [id number] ? Procedure: ? Upper GI endoscopy Indications: ? Heartburn, Diarrhea Providers: ? Rahul Quinones MD, Kathe boyer, ? RN, Aubrie Elliott, Doctor Of Podiatric Medicine Referring : ?More Parr MD, Benny marcano, ? MD Medicines: ? Midazolam 1 mg IV Complications: ? No immediate complications. Procedure: ? The procedure, indications, benefi ts, ? risks and alternatives were e xplained ? to the patient. Specifically ? discussed were potential ? complications including, but not ? limited to, bleeding, perfora tion, ? infection, missing a cancer, and ? adverse medication reactions. The ? Endoscope was introduced thro [facility] the ? mouth, and advanced to the [facility] part ? of duodenum. The patient rayoe rated ? the procedure well. ? Findings: ? The examined esophagus was normal. The Z-line was ? regular and was found 40 cm from the incisors. The ? stomach was normal. The examined duodenum was normal. ? Biopsies were taken with a cold forceps for ? evaluation of celiac disease. ? Impression: ?- Normal esophagus. ? - Z-line regular, 40 cm from the ? incisors. The GE jct was geneu lous ? (wide open) ? - Normal stomach. ? - Normal examined duodenum. B iopsy ? was performed. ? - Biopsies were taken with a cold ? forceps for evaluation of ilene iac ? disease. ? Sx are c/w nonerosive GERD, c ontinue ? Zantac Recommendation: ?- Await pathology results. ? Rahul Quinones MD 10/27/2012 2:56 PM This report has been signed electronically. Number of Addenda: 0 Note Initiated On: 10/27/2012 2:12 PM Specimen (Source) Anatomical Collection Method Collection Time Re ceived Time Location / / Volume Laterality 10/27/2012 2:12 PM EST More Parr MD GENERAL SURGICAL ORDERABLES Performing Organization Address City/State/ZIP Code Phon e Number [facility] documented in this encounter Visit Diagnoses Not on filedocumented in this encounter Administered Medications Inactive Administered Medications - up to 3 most recent administrations Medication Order MAR Action Action Date Dose Rate Site fentaNYL 50mcg/mL injection Given 10/27/2012 2:32 PM EST 50 mcg Right Arm ONCE PRN, Starting on Fri10/27/12 at 1422, Until Fri10/27/12 at 1839, Pain, Intra-Operative (Intra-Procedure), Routine Given 10/27/2012 2:30 PM EST 50 mcg Right Arm Given 10/27/2012 2:27 PM EST 50 mcg Right Arm ibuprofen (ADVIL;MOTRIN) tablet 400 mg Given 10/27/2012 3:30 PM EST 400 mg 400 mg, Oral, ONCE, 1 dose, On Fri10/27/12 at 1530, Maximum dose of 3200 mg from all sources in 24 hours, Endoscopy (Recovery-Hospital Unit), Routine midazolam (VERSED) injection Given 10/27/2012 2:48 PM EST 1 mg Right Arm ONCE PRN, Starting on Fri10/27/12 at 1422, Until Fri10/27/12 at 1839, Sleep, Intra-Operative (Intra-Procedure), Routine Given 10/27/2012 2:30 PM EST 1 mg Right Arm Given 10/27/2012 2:26 PM EST 1 mg Right Arm ondansetron (ZOFRAN) tablet Given 10/27/2012 2:17 PM EST 4 mg ONCE PRN, Starting on Fri10/27/12 at 1417, Until Fri10/27/12 at 1839, Nausea, Intra-Operative (Intra-Procedure), Routine sodium chloride 0.9% infusion New Bag 10/27/2012 1:53 PM EST 30 mL/hr 30 mL/hr 30 mL/hr, Intravenous, CONTINUOUS, Starting on Fri10/27/12 at 1400, Until Fri10/27/12 at 1839, Endoscopy (Day of Procedure) documented in this encounter Active and Recently Administered Medications Times are shown in EST. Scheduled Medication Order 10/25/2012 10/26/2012 10/27/2012 ibuprofen (ADVIL;MOTRIN) tablet 400 mg (COMPLETED) 1530 (Given - Provider: Kathie Ocampo RN) 400 mg, Oral, ONCE, 1 dose, On Fri 3 at 1530, Maximum dose of 3200 mg from all sources in 24 hours, Endoscopy (Recovery-Hospital Unit), Routine Continuous Medication Order 10/25/2012 10/26/2012 10/27/2012 sodium chloride 0.9% infusion (CANCELED) 1353 (New Bag - Provider: Fuad Andrew RN) 30 mL/hr, at 30 mL/hr, Intravenous, CONT INUOUS, Starting 10/27/12 at 1400, Until 10/27/12 at 1839, Endo (Day of Procedure) PRN Medication Order 10/25/2012 10/26/2012 10/27/2012 fentaNYL 50mcg/mL injection (CANCELED) 1422 (Given - Provider: Kathe Ho RN)1425 (Given - Provider: Kathe Ho RN)1427 (Given - Provider: Kathe Ho RN)1430 (Given - Provider: Kathe Ho RN - Comment: cramps) ONCE PRN, Starting 10/27/12 at 1422, U ntil 10/27/12 at 1839, Pain, Intra- Operative (Intra-Procedure), Routine 143 2 (Given - Provider: Kathe Ho RN - Comment: pain) midazolam (VERSED) injection (CANCELED) 1422 (Given - Provider: Kathe Ho RN)1424 (Given - Provider: Kathe Ho RN)1426 (Given - Provider: Kathe Ho RN - Comment: pain)1430 (Given - Provider: Kathe Ho RN - Comment: cramps) ONCE PRN, Starting 10/27/12 at 1422, U ntil 10/27/12 at 1839, Sleep, Intra- Operative (Intra-Procedure), Routine 144 8 (Given - Provider: Kathe Ho RN) ondansetron (ZOFRAN) tablet (CANCELED) 1417 (Given - Provider: Kathe Ho RN) ONCE PRN, Starting 10/27/12 at 1417, U ntil 10/27/12 at 1839, Nausea, Intra- Operative (Intra-Procedure), Routine documented in this encounter Care Teams Junior Media Buyer Relationship Specialty Start Date End Date More Parr MD PCP - General 06/17/12 [address] [place] [address] documented as of this encounter
--- OUTSIDE RECORDS SUMMARY | 2022-08-09 00:53 | XMS_ITS | Encounter Summary ---
:1980 Author Organization [facility] Address [address] [place] [address] Care Team Providers Name Role Phone GregoryKristina rosas Nani SENIOR PARTNER Primary Care Provider Encounter Details Date Type Department Care Team Description 11/28/2011 Results Only [facility] Shekhar Vaca, [facility] Laboratory Services - [address] [place]re[place] [address] [address] [place] [address] [phone] Social History Tobacco Use Types Packs/Day Years Used Date Never Assessed Sex Assigned at Date Recorded Not on file documented as of this encounter Plan of Treatment Not on filedocumented as of this encounter Procedures Procedure Name Priority Date/Time Associated Diagnosis Comme nts PAP TEST- RESULT Routine 11/28/2011 0:00 EST Resu lts for this ONLY procedure are i n the results section. documented in this encounter Results PAP TEST- RESULT ONLY (11/28/2011 0:00 EST) Pathology Report: CYTOPATHOLOGY REPORT [facility] Reports generated via electronic interface contain zuly ginal data; however they are lacking the format of the original re port. Caution should be taken when reading/interpreting unfo rmatted reports. Name: ? KIMANI PEREZ ? Accession #: ? [id number] : ? 1980 (Age: 31) ??F ?Collect Date: ? 0206/2012 Location: ? [facility] ? Receive Date : ? 11/29/2011 Provider: ?ALEJO VACA WIRELESS INTERNET INSTALLER Copy to: ?KRISTINA WILLARD SENIOR PARTNER ? Specimen/Source: ? Pap Test, Cervix/Endocervix, ThinPrep Imaging System with manual evaluation Last Menstrual Period: ? Hormonal/Contraceptive Status: ? Yes: Mirena ? SPECIMEN ADEQUACY ? Satisfactory for Evaluation - transformation zone component present GENERAL CATEGORIZATION ? Negative for Intraepithelial Lesion or Malignan cy ? Document reviewed and electronically signed by: ? Kristina Trujillo, JENA(ASCP) ? Report Date: ??12/04/2011 13:45 End of Report Specimen Performing Organization Address City/State/ZIP Code Phon e Number [facility] [address] [place] [address] SERVICES [facility] [address] [place] [address] documented in this encounter Visit Diagnoses Not on filedocumented in this encounter Care Teams Fruit Culler Relationship Specialty Start Date End Date Kristina Willard NP PCP - General 07/18/09 [facility] [address] [place], [place] [address] documented as of this encounter
--- OUTSIDE RECORDS SUMMARY | 2022-08-09 00:53 | XMS_ITS | Encounter Summary ---
:1980 Author Organization [facility] Address [address] [place] [address] Care Team Providers Name Role Phone Kristina Shook DISASTER DIRECTOR Primary Care Provider Encounter Details Date Type Department Care Team Description 06/10/2002 Results Only [facility] - Eileen Guerra od, LEGAL RESEARCHER conversion [address] [place] [phone] (Wo rk) Social History Tobacco Use Types Packs/Day Years Used Date Never Assessed Sex Assigned at Date Recorded Not on file documented as of this encounter Plan of Treatment Not on filedocumented as of this encounter Procedures Procedure Name Priority Date/Time Associated Diagnosis Comme nts CYTOPATHOLOGY Routine 06/10/2002 0:00 EDT Results for this procedure are i n the results section . documented in this encounter Results CYTOPATHOLOGY (06/10/2002 0:00 EDT) Pathology Report: CYTOPATHOLOGY REPORT [facility] Reports generated via electronic interface contain zuly ginal data; however they are lacking the format of the original re port. Caution should be taken when reading/interpreting unfo rmatted reports. Name: ? KIMANI PEREZ ? Accession #: ? [id number] : ? 1980 (Age: 22) ??F ?Collect Date: ? 05/21 Location: ? [facility] ? Receive Date : ? 06/14/2002 Provider: ?EILEEN PEDRAZA LEGAL RESEARCHER Copy to: ? Specimen/Source: ?ThinPrep Pap Test, Cervix/ Endocervix Last Menstrual Period: ? 05/10/02 Hormonal/Contraceptive Status: ? Control Pills ? SPECIMEN ADEQUACY ? Satisfactory for Evaluation - transformation zone component absent GENERAL CATEGORIZATION ? Negative for Intraepithelial Lesion or Malignan cy ? Document reviewed and electronically signed by: ? Suzy Rain [facility](ASCP) ? Report Date: ??06/14/2002 14:52 End of Report Specimen Performing Organization Address City/State/ZIP Code Phon e Number [facility] [address] [place] [address] SERVICES [facility] [address] [place] [address] documented in this encounter Visit Diagnoses Not on filedocumented in this encounter Care Teams In Store Marketing Associate Relationship Specialty Start Date End Date Kristina Shook NP PCP - General 07/18/09 [facility] [address] [place] [address] documented as of this encounter
--- OUTSIDE RECORDS SUMMARY | 2022-08-09 00:53 | XMS_ITS | Encounter Summary ---
:1980 Author Organization [facility] [place] [address] Care Team Providers Name Role Phone More Parr MD Primary Care Provider Encounter Details Date Type Department Care Team Description 10/27/2012 Hospital Encounter Gastroenterology at [facility] Ben Gabriel MD [facility] [address] [place] [address] [facility] Clifford Velasquez MD [facility] [place] [address] [place] [address] Rahul Quinones MD [facility] [place] [address] [phone] Social History Tobacco Use Types Packs/Day Years [...] documented in this encounter Discharge Instructions Discharge InstructionsRaAvis simmons RN - 10/27/2012 3:05 PM EST You [...] occurs, please contact your MD/ Please call [phone] before 5pm with problems, questions or concerns. After 5pm call [phone] and ask to speak with the sewing machinist medical information officer. Discharge instructions reviewed with patient who expresses understanding. AttachmentsThe following attachments cannot be sent through Care Everywhere. COLONOSCOPY: WHAT TO EXPECT AT HOME ([place])UPPER GI ENDOSCOPY: WHAT TO EXPECT AT HOME ([place])documented in this encounter Medications at Time of [...] signed. documented in this encounter Miscellaneous Notes Miscellaneous - Provider, Scanning - 10/27/2012 9:30 PM [...] Surgical Pathology Report (10/27/2012 3:44 PM EST) [facility] gist Method Time Signature Surgical CERNER Pathology ? [facility] Report ? Provider: ?? RAHUL QUINONES ?Pt. Name: ?? KIMANI MCKAY ? Acc #: ?[id number] ?Pt. MRN: ?[id number] ? Col Date: ?? 10/27/2012 ?/Sex: ?1980,(32 [...] MD PATHOLOGY/CYTOLOGY ORDERABLE S Performing Organization Address [facility] [place] [address] CERNER MILLENNIUM Specimen to [...] MD PATHOLOGY/CYTOLOGY ORDERABLE S Performing Organization Address [facility]/[place] [address] CERNER MILLENNIUM Specimen to [...] MD PATHOLOGY/CYTOLOGY ORDERABLE S Performing Organization Address [facility]/[place] [address] CERNER MILLENNIUM COLONOSCOPY (10/27/2012 2:12 PM EST) [facility] Method Time Signature COLONOSCOPY [facility] Endoscopy Patient Name: Kimani Perez ? Procedure Date: 10/27/2012 2:12 PM ? Date of : 1980 ? Age: 32 ? Order #: [id number] ? Procedure: ? Colonoscopy Indications: ? chronic [...] Th e ? colonoscopy was performed wit alia ? difficulty. The patient johnny ated the [...] Address City/State/ZIP Code Phon e Number [facility] UPPER GI ENDOSCOPY (10/27/2012 2:12 PM EST) [facility] gist Method Time Signature UPPER GI [facility] ENDOSCOPY Endoscopy Patient Name: Kimani Perez ? Procedure Date: 10/27/2012 2:12 PM ? Date of : 1980 ? Age: 32 ? Order #: [id number] ? Procedure: ? Upper GI endoscopy Indications: ? Heartburn, Diarrhea Providers: ? Rahul Quinones MD, Kathe boyer, ? RN, Aubrie Elliott, Rotary Drill Operator Helper Referring : ?More Parr MD, Benny marcano, [...] reactions. The ? Endoscope was introduced thro h the ? mouth, and [facility] ? of duodenum. The patient tole rated ? the procedure well. ? Findings: [...] the ? incisors. The GE jct was yue rowe ? (wide open) ? - Normal stomach. [...] MAR Action Action Date Dose Rate Site ibuprofen (ADVIL;MOTRIN) tablet Given 10/27/2012 3:30 PM EST 400 mg 400 mg 400 mg, Oral, ONCE, 1 dose, On Fri10/27/12 at 1530, Maximum dose of 3200 mg from all sources in 24 hours, Endoscopy (Recovery-Hospital Unit), Routine sodium chloride 0.9% infusion New Bag [...] at 30 mL/hr, Intravenous, CONT INUOUS, Starting Fri10/27/12 at 1400, Until Fri10/27/12 at 1839, Endo (Day of Procedure) PRN Medication Order 10/25/2012 10/26/2012 10/27/2012 fentaNYL 50mcg/mL injection (CANCELED) 1422 (Given - Provider: Kathe Ho RN)1425 (Given - Provider: Kathe Ho RN)1427 (Given - Provider: Kathe Ho, KELSEA)1430 (Given - Provider: Kathe Ho, KELSEA - Comment: cramps) ONCE PRN, Starting Fri10/27/12 at 1422, U ntil Fri10/27/12 at 1839, Pain, Intra- Operative (Intra-Procedure), Routine [...] Routine documented in this encounter Care Teams Executive Pastry Chef Relationship Specialty Start Date End Date More Parr MD PCP - General 06/17/12 [address] [place] [address] documented as of this encounter
--- OUTSIDE RECORDS SUMMARY | 2022-08-09 00:53 | XMS_ITS | Encounter Summary ---
:1980 Author Organization [facility] Address [address] [place] [address] Care Team Providers Name Role Phone Unavailable Primary Care Provider Unavailable Encounter Details Date Type Department Care Team Description 11/04/2008 Before PRISM [facility] - Eileen Vaca, Converted Visit Maple conversion TESTER ELECTRONIC SCALE (Maple) [address] [place] [address] [place], [place] [phone] (Wo rk) Social History Tobacco Use Types Packs/Day Years Used Date Never Assessed Sex Assigned at Date Recorded Not on file documented as of this encounter Plan of Treatment Not on filedocumented as of this encounter Procedures Procedure Name Priority Date/Time Associated Diagnosis Comme [facility] CYTOPATHOLOGY Routine 11/04/2008 0:00 EST Results for this procedure are i n the results section . documented in this encounter Results CYTOPATHOLOGY (11/04/2008 0:00 EST) Pathology Report: CYTOPATHOLOGY REPORT ? [facility] ? [facility] Reports generated via electr [employer] interface contain original data; ? however they are lacking the format of the original report. ? Caution should be taken when reading/interpreting unformatted reports. ? Name: ? PEREZ, KIMANI ? Accession #: ? [id number] ? : ? 1980 (Age: 28) ??F ?Collect Date: ? 11/04/2008 ? Location: ? [facility] ? Receive Date: ? 11/04/2008 ? Provider: ?EILEEN HAYG OOD TESTER ELECTRONIC SCALE ? Copy to: ? Specimen/Source: ? Pap Test, Cervix/Endocervix, ThinPrep Imaging System ? with manual evaluation ? Last Menstrual Period: ? 12/24/08 ? Hormonal/Contraceptive Statu s: ? Intrauterine device: Mirena ? Other: ? HPVA - HPV testing requested if ASC-US on the current ThinPrep Pap test. ? SPECIMEN ADEQUACY ? Satisfactory for Eval uation ? - transformation zone compon ent present ? GENERAL CATEGORIZATION ? Negative for Intraepi thelial Lesion or Malignancy ? Document reviewed and electr onically signed by: ? Lynan Alexy, [place](ASCP) ? Report Date: ??01/20/ 2009 10:34 ? End of Report ? Specimen Performing Organization Address City/State/ZIP Code Phon e Number [facility] [address] [place] [address] SERVICES [facility] [address] [place] [address] documented in this encounter Visit Diagnoses Not on filedocumented in this encounter
--- OUTSIDE RECORDS SUMMARY | 2022-08-09 00:53 | XMS_ITS | Encounter Summary ---
:1980 Author Organization [facility] [place] [address] Care Team Providers Name Role Phone More Parr MD Primary Care Provider Reason for Visit Reason Onset Date Comments Other 11/10/2012 letter Encounter Details Date Type Department Care Team Description 11/10/2012 Telephone Gastroenterology at [facility] Benny Menchaca, Other (letter) [facility] [place] [address] [facility] [phone] GASTROENTEROLOGY DEPT. [place], [place] [address] (Wo rk) Social History Tobacco Use Types Packs/Day Years Used Date Current Every Day Smoker Sex Assigned at Date Recorded Not on file documented as of this encounter Miscellaneous Notes Telephone Encounter - Martha Guajardo RN - 11/10/2012 7:56 AM EST Unable to reach pt - mailed letter Martha Guajardo RN 11/10/2012 7:45 AM Signed Per Benny Menchaca NP BetoJakub Perez, Your upper endoscopy, colonoscopy and biopsies were good. Please let me know by thru the clinic nurses how you are feeling. Specifically I would like to know to what degree you symptoms are better or not. Is your diarrhea being controlled by medication (name, dose). If not please call to discuss the possible use of another medication: bentyl. Please confirm if you are taking dexilant or zantac? And is this medication controlling gastic reflux? Please let me know if any new diets or plans we made have partially, completely or not been effective. Thank you Martha Guajardo RN [phone] documented in this encounter Plan of Treatment Not on filedocumented as of this encounter Visit Diagnoses Not on filedocumented in this encounter Care Teams Wellness Consultant Relationship Specialty Start Date End Date More Parr MD PCP - General 06/17/12 [address] [place] [address] documented as of this encounter
--- OUTSIDE RECORDS SUMMARY | 2022-08-09 00:53 | XMS_ITS | Clinical Summary ---
:1980 Author Organization [facility] [place] [address] Care Team Providers Name Role Phone More Parr MD Primary Care Provider Allergies Active Allergy Reactions Severity Noted Date Comments Aspirin CIS - severe no se bleeds Diphenhydramine Palpitations High 10/27/2012 Penicillins Nausea And Vomiting Medium Pseudoephedrine Hcl CIS - ra cing heart, drooling Medications Medication Sig Dispensed Refills Start Date End Date Status ibuprofen 600MG = 1 0 06/21/2010 Active (ADVIL;MOTRIN) 600 mg Tablet(s), PO, tablet Q6H RANITIDINE HCL (ZANTAC Take 1 tablet by 0 Active ORAL) mouth as needed. citalopram (CELEXA) 40 Take 40 mg by 0 Active mg TabletIndications: mouth daily. 50 mg total. 1/ 40 mg Indications: 50 and 1/ 10 mg. tab mg total. 1/ 40 mg and 1/ 10 mg. tab ketoconazole (NIZORAL) Apply every day 120 mL 2 08/28/2015 Active 2 % ShampooIndications: for 2 weeks; Seborrheic dermatitis leave on for 7-10 minutes prior to washing. Then use 1-2 times a week for maintenance. Active Problems Problem Noted Date IBS (irritable bowel syndrome) 09/14/2012 Social History Tobacco Use Types Packs/Day Years Used Date Current Every Day Smoker Sex Assigned at Date Recorded Not on file Last Filed Vital Signs Vital Sign Reading Time Taken Comments Blood Pressure 91/42 10/27/2012 3:05 PM EST Pulse 71 10/27/2012 3:05 PM EST Temperature 36.5 ??C (97.7 ??F) 10/27/2012 1:44 PM EST Respiratory Rate 16 10/27/2012 3:05 PM EST Oxygen Saturation 94% 10/27/2012 3:05 PM EST Inhaled Oxygen Concentration - - Weight 69.4 kg (153 lb) 09/14/2012 9:59 AM EST Height 165.1 cm (5' 5) 09/14/2012 9:59 AM EST Body Mass Index 25.46 09/14/2012 9:59 AM EST Plan of Treatment Health Maintenance Due Date Last Done Comments Covid-19 Vaccine (#1) 1980 HIV screen 1999 Hepatitis C Screening 1999 Tdap adult 02/10/2000 Tetanus vaccine 02/10/2000 HPV test 2011 PAP Smear 2011 Breast Cancer Share Decision Needed 2021 Influenza (Flu) vaccine (1 of 1 - Influenza standard 06/20/2022 series) Insurance Payer Benefit Plan / Subscriber ID Effective Dates Phone Addre ss Type [place] [id number] 2015-Janelle [phone] [address] [facility] [address] [place], [place] [phone] [id number] [phone] [address] TRUONG (Home) [facility] [phone] [place] [address] (Work) Care Teams Animal Therapist Relationship Specialty Start Date End Date More Parr MD PCP - General 06/17/12 [address] [place], [place] [address]
--- OUTSIDE RECORDS SUMMARY | 2022-08-09 00:53 | XMS_ITS | Encounter Summary ---
:1980 Author Organization [facility] Address [address] [place] [address] Care Team Providers Name Role Phone BooneKristina Nani LOERA Primary Care Provider Encounter Details Date Type Department Care Team Description 08/18/2018 Results Only [facility]- Eileen Saucedo, FUEL DOCK ATTENDANT [phone] [facility] [facility] [address] [place] [address] (Wo rk) Social History Tobacco Use Types Packs/Day Years Used Date Never Assessed Sex Assigned at Date Recorded Not on file documented as of this encounter Plan of Treatment Not on filedocumented as of this encounter Procedures Procedure Name Priority Date/Time Associated Diagnosis Comme nts PAP TEST- RESULT Routine 08/18/2018 0:00 EDT Resu lts for this ONLY procedure are i n the results section. documented in this encounter Results PAP TEST- RESULT ONLY (08/18/2018 0:00 EDT) Pathology Report: CYTOPATHOLOGY REPORT [facility] Reports generated via electronic interface contain zuly ginal data; SERVICES however they are lacking the format of the original re port. Caution should be taken when reading/interpreting unfo rmatted reports. Name: ? KIMANI PEREZ ? Accession #: ? [id number] ? : ? 1980 (Age: [age]) ??F ?Collect Da te: ? 08/18/2018 ? Location: ? [facility] ? Receive Date: ? 018 ? Provider: EILEEN PEDRAZA FUEL DOCK ATTENDANT Copy to: SCOTT PÉREZ MD ? Final Report SPECIMEN ADEQUACY ? Satisfactory for Evaluation - transformation zone component present GENERAL CATEGORIZATION ? Negative for Intraepithelial Lesion or Malignan cy INTERPRETATION ? Shift in caryn present suggestive of bacterial vaginosis. Hormonal/Contraceptive status: Intrauterine device Specimen/Source: ??Pap Test, Cervix, ThinPrep Imaging System with manual evaluation Document reviewed and electronically signed by: ? Alisson Lakhani, [facility](ASCP) ? Report ??Date: 08/27/2018 12:15 HPV with Pap Test ? Date Ordered: ? 08/27/2018 ? Status: ?? Signed Out ?Date Complete: ? 08/28/2018 ? By: ??Sy stem Interface ? Date Reported: ? 08/28/2018 ? Interpretation RESULT: Negative for HPV. No E6 or E7 mRNA is detected from HPV types 16,18,31,3 3,35, 39,45,51,52,56,58,59,66, and 68 by molder fitting media tali amplification. Comments Document reviewed and electronically signed by: ? System Interface ? Report date: 08/28/2018 By the signature above, the attending physician certif ies that he/she has personally conducted a gross and/or microscopic examin ation of the described specimens and rendered or confirmed the above diagnosi s. End of Report Specimen Performing Organization Address City/State/ZIP Code Phon e Number [facility] [address] [place] [address] SERVICES documented in this encounter Visit Diagnoses Not on filedocumented in this encounter Care Teams Staff Home Therapy Rn Relationship Specialty Start Date End Date Kristina Shook, HERBICIDE SERVICE SALES REPRESENTATIVE PCP - General 07/18/09 [facility] [address] [place], [place] [address] documented as of this encounter
--- OUTSIDE RECORDS SUMMARY | 2022-08-09 00:53 | XMS_ITS | Encounter Summary ---
:1980 [place] [address] Care Team Providers Name Role Phone PortsmouthKristina APRN Primary Care Provider Encounter Details Date Type Department Care Team Description 09/17/2011 Orders Only Pain Management at Jennifer Machado DO [facility] [place] [address] [facility] [phone] [place] [address] (Wo rk) Social History Tobacco Use Types Packs/Day Years Used Date Current Every Day Smoker Sex Assigned at Date Recorded Not on file documented as of this encounter Plan of Treatment Not on filedocumented as of this encounter Procedures Procedure Name Priority Date/Time Associated Diagnosis Comme nts FILM LIBRARY Routine 09/17/2011 2:05 PM Results f or this STORAGE ONLY PAIN EST procedure are in CLINIC C ARM the results section. documented in this encounter Results FILM LIBRARY-STORAGE ONLY PAIN CLINIC C-ARM (09/17/2011 2:05 PM EST) Anatomical Region Laterality Modality Other Specimen (Source) Anatomical Collection Method Collection Time Re ceived Time Location / / Volume Laterality 09/17/2011 2:05 PM EST Narrative 12/07/2013 6:46 PM EST This is a non-reportable exam. Procedure Note Christian Maurice - 12/07/2013Formatting of t his note might be different from the original. This is a non-reportable exam. Jennifer Ellsworth DO Nani FILM LIBRARY ORDERABLES documented in this encounter Visit Diagnoses Not on filedocumented in this encounter Care Teams Television Audio Engineer Relationship Specialty Start Date End Date Kristina Shook APRN PCP - General 09/11/10 06/16/12 documented as of this encounter
--- OUTSIDE RECORDS SUMMARY | 2022-08-09 00:53 | XMS_ITS | Clinical Summary ---
:1980 Author Organization [facility] Address [address] [place] [address] Care Team Providers Name Role Phone Kristina Shook SUPERVISOR CONCRETE BLOCK PLANT Primary Care Provider Social History Tobacco Use Types Packs/Day Years Used Date Never Assessed Sex Assigned at Date Recorded Not on file Plan of Treatment Health Maintenance Due Date Last Done Comments Hepatitis C Screen 1980 COVID-19 Vaccine (1) 1986 Insurance Payer Benefit Plan Subscriber ID Effective Phone Address Typ e / Group Dates MEDICAID ACO MEDICAID ACO [id number] 2019-Pres [phone] [address] Medicaid [place] [address] [facility] [id number] (Work) Care Teams Rehab Department Manager Relationship Specialty Start Date End Date Kristina Shook, SUPERVISOR CONCRETE BLOCK PLANT PCP - General 07/18/09 [facility] [address] [place], [place] [address]
--- OUTSIDE RECORDS SUMMARY | 2022-08-09 00:53 | XMS_ITS | Encounter Summary ---
:1980 Author Organization [facility] Address [address] [place] [address] Care Team Providers Name Role Phone Boone Kristina Cardoza TECHNICAL SALES SPECIALIST Primary Care Provider Encounter Details Date Type Department Care Team Description 01/29/2006 Results Only [facility] - Kristina Oliveros CNM [facility] [address] [place] [address] Social History Tobacco Use Types Packs/Day Years Used Date Never Assessed Sex Assigned at Date Recorded Not on file documented as of this encounter Plan of Treatment Not on filedocumented as of this encounter Procedures Procedure Name Priority Date/Time Associated Diagnosis Comme nts CYTOPATHOLOGY Routine 01/29/2006 0:00 EDT Results for this procedure are i n the results section . documented in this encounter Results CYTOPATHOLOGY (01/29/2006 0:00 EDT) Pathology Report: CYTOPATHOLOGY REPORT [facility] Reports generated via electronic interface contain zuly ginal data; however they are lacking the format of the original re port. Caution should be taken when reading/interpreting unfo rmatted reports. Name: ? KIMANI PEREZ ? Accession #: ? [id number] : ? 1980 (Age: 25) ??F ?Collect Date: ? 01/18 Location: ? [facility] ? Receive Date : ? 01/30/2006 Provider: ?KRISTINA MACKEY CNM Copy to: ? Specimen/Source: ? ThinPrep Pap Test, Cervix/Endocervix, processed on [employer] Online ThinPrep Imaging System, with manual evaluation Last Menstrual Period: ? 03/20/05 Menstrual/ Status: ? Post Other: ? HPVA - HPV testing requested if ASC-US on the current ThinPrep Pap test. ? SPECIMEN ADEQUACY ? Satisfactory for Evaluation - transformation zone component present GENERAL CATEGORIZATION ? Negative for Intraepithelial Lesion or Malignan cy ? Document reviewed and electronically signed by: ? LEONARD Mena(ASCP) ? Report Date: ??02/03/2006 09:41 End of Report Specimen Performing Organization Address City/State/ZIP Code Phon e Number [facility] [address] [place] [address] [facility] [address] [place] [address] documented in this encounter Visit Diagnoses Not on filedocumented in this encounter Care Teams Filter Changing Technician Relationship Specialty Start Date End Date Kristina Shook NP PCP - General 07/18/09 [facility] [address] [place], [place] [address] documented as of this encounter
--- OUTSIDE RECORDS SUMMARY | 2022-08-09 00:53 | XMS_ITS | Encounter Summary ---
:1980 Author Organization [facility] Address [address] [place] [address] Care Team Providers Name Role Phone Unavailable Primary Care Provider Unavailable Encounter Details Date Type Department Care Team Description 07/12/2005 Hospital Encounter [facility] - Lab Specimen, Other Unknown, Provider, [address] [place] [address] Social History Tobacco Use Types Packs/Day Years Used Date Never Assessed Sex Assigned at Date Recorded Not on file documented as of this encounter Discharge Disposition Disposition Code Departure Means Destination Auto Discharge documented in this encounter Plan of Treatment Not on filedocumented as of this encounter Procedures Procedure Name Priority Date/Time Associated Diagnosis Comme nts SURGICAL PATHOLOGY Routine 07/14/2009 0:00 EDT Re sults for this procedure are i n the results section. documented in this encounter Results SURGICAL PATHOLOGY (07/14/2009 0:00 EDT) Pathology Report: SURGICAL PATHOLOGY REPORT ? [facility] Reports generated via [employer] interface contain original data; ? LAB however they are lacking the format of the original report. ? Caution should be taken when reading/interpreting unformatted reports. ? Name: ? PEREZ, KIMANI ? Accession #: ? [id number] ? : ? 1980 (Age: 29) ??F ? Collec t Date: ? 07/14/2009 ? Location: ? [facility] ? R eceive Date: ? 07/15/2009 ? Provider: SCOTT BERRIAN MD ? Copy to: [facility] ? Final Pathologic Diagnosis: ? Skin of back, right m id, excisional biopsy: ? - Seborrheic keratosis, pigm ented. ? Microscopic Description: ? The stratum corneum i s thickened by compact and basketweave orthokeratosis with formation of horn pseud ocysts. ??The epidermis is acanthotic with formation of broad and anastomosing tr abeculae. ??The trabeculae are composed of basaloid ?? keratinocytes with round uni form nuclei. ??The keratinocytes have a variable ? amount of melanin pigment. ? ?(Dr. Edwards)/mms ? Document reviewed and electr onically signed by: ? Avis Edwards MD ? Report ??Date: 07/18/2009 16 :20 ? By the signature above, the attending physician certifies that he/she has ? personally conducted a gross and/or microscopic examination of the described ? specimens and rendered or co nfirmed the above diagnosis. ? Specimen(s) Received: ? 6.0 x 8.0 mm elliptic al excision to subdermal fat ? Clinical History: ? 6.0 x 8.0 mm brown, s lightly raised lesion R mid back, itchy. Nevus vs ? seborrheic keratosis ? Gross Description: ? Received in formalin labelled Lopez, Kimani and upper R side of back is an unoriented elliptical exc ision of jiménez skin which measures 0.9 x 0.6 cm and is excised to a depth of 0.6 cm . ??There is a central, poe, firm, asymmetrical ? papule measuring 0.5 x 0.4 x 0.1 cm. ??The margins are inked black. ??The specimen is serially sectioned and en tirely submitted as (A1) central sections and (A2), tips, reverse en face. (Kassandra cheung/mpl ? End of Report ? Specimen Performing Organization Address City/State/ZIP Code Phon e Number [facility] [address] [place] [address] SERVICES [facility] [address] [place] [address] documented in this encounter Visit Diagnoses Not on filedocumented in this encounter
--- OUTSIDE RECORDS SUMMARY | 2022-08-09 00:53 | XMS_ITS | Encounter Summary ---
:1980 Author Organization [facility] Address [address] [place] [address] Care Team Providers Name Role Phone Kristina Shook CROSS COUNTRY/TRACK AND FIELD COACH Primary Care Provider Encounter Details Date Type Department Care Team Description 12/04/2021 Lab Requisition [facility] Outr Resulting Lab, Pathology & Laboratory Provider [facility] [address] [place], [place] [address] Social History Tobacco Use Types Packs/Day Years Used Date Never Assessed Sex Assigned at Date Recorded Not on file documented as of this encounter Plan of Treatment Not on filedocumented as of this encounter Procedures Procedure Name Priority Date/Time Associated Comments Diagnosis CHLAMYDIA/N. Routine 12/03/2021 15:30 Results for this GONORRHOEAE AMPLIFIED EST proced ure are in RNA the results section. documented in this encounter Results CHLAMYDIA/N. GONORRHOEAE AMPLIFIED RNA (12/03/2021 15:30 EST) Pathologist Sig nature Gonococcus Result Negative Negative [facility] Chlamydia Result Negative Negative [facility] Specimen Swab - Entire endocervix (body structure ) Performing Organization Address City/State/ZIP Code Phon e Number [facility] [address] [place] [address] SERVICES documented in this encounter Visit Diagnoses Not on filedocumented in this encounter Care Teams Photography Spotter Relationship Specialty Start Date End Date Kristina Shook, CROSS COUNTRY/TRACK AND FIELD COACH PCP - General 07/18/09 [facility] [address] [place], [place] [address] documented as of this encounter
--- OUTSIDE RECORDS SUMMARY | 2022-08-09 00:53 | XMS_ITS | Encounter Summary ---
:1980 Author Organization [facility] [place] [address] Care Team Providers Name Role Phone More Parr MD Primary Care Provider Encounter Details Date Type Department Care Team Description 08/20/2016 Telephone Dermatology at [facility] Ben Medina MD [address] [facility] [place] [address] [facility] [phone] [place] [id number] (Wo rk) Social History Tobacco Use Types Packs/Day Years Used Date Current Every Day Smoker Sex Assigned at Date Recorded Not on file documented as of this encounter Miscellaneous Notes Telephone Encounter - Tana Hogue - 08/20/2016 12:02 PM EDT I called the patient to schedule their f/u appointment in August. I was unable to reach them, so Ileft a VM leaving Elena's direct line and requesting a call back to schedule. documented in this encounter Plan of Treatment Not on filedocumented as of this encounter Visit Diagnoses Not on filedocumented in this encounter Care Teams Dump Attendant Relationship Specialty Start Date End Date More Parr MD PCP - General 06/17/12 [address] [place], [place] [id number] documented as of this encounter
--- OUTSIDE RECORDS SUMMARY | 2022-08-09 00:53 | XMS_ITS | Encounter Summary ---
:1980 Author Organization [facility] [address] Care Team Providers Name Role Phone More Parr MD Primary Care Provider Reason for Visit Reason Comments GI Problem Encounter Details Date Type Department Care Team Description 09/14/2012 Office Visit Gastroenterology at [facility] Benny Menchaca IBS (irritable bowel [facility] D rive HEALTH INFORMATION CLERK syndrome) ([place] [address] [facility] ) [phone] [facility] [address] Social History Tobacco Use Types Packs/Day Years Used Date Current Every Day Smoker Sex Assigned at Date Recorded Not on file documented as of this encounter Last Filed Vital Signs Vital Sign Reading Time Taken Comments Blood Pressure 108/61 09/14/2012 9:59 AM EST Pulse 86 09/14/2012 9:59 AM EST Temperature - - Respiratory Rate - - Oxygen Saturation - - Inhaled Oxygen Concentration - - Weight 69.4 kg (153 lb) 09/14/2012 9:59 AM EST Height 165.1 cm (5' 5) 09/14/2012 9:59 AM EST Body Mass Index 25.46 09/14/2012 9:59 AM EST documented in this encounter Progress Notes Benny Menchaca, RN - 09/14/2012 10:25 AM EST Section of Gastroenterology and Hepatology [address] [place] [id number] .Kimani L Chris : 1980 Patient is here for further evaluation of gastrointestinal symptoms at the request of More Parr. HPI: Dx 10 years ago with ibs. Daily diarrhea, can have 1 to several loose stools per day. Does not awake during the night. No blood. Mucous in stools. No incontinent episodes. Associated cramping/urgency, improve once able to empty. Stools can be explosive. Unable to identify triggers. Takes daily imodium helps to firm stool. May not go for a day, but will a larger formed stool next day. Weight gain. Pt mentions she had her annual exam and blood work this year, everything was fine. Pt notes when she was placed on Paxil her ibs sx were fine for a long time. Tried avoiding dairy with no effect. Tried gluten free diet with no effect. Eats La yogurt daily, has probiotics, finds helpful. Recently is feeling a flutter in the rectum. No significant constipation. Has had stool studies in the past, they were all fine. Hemorrhoid, occasional flare, can be sore, no tx. Hx of heartburn, regurgitation, acid taste. In the past tried diet manipulation which was helpful, but now heartburn has returned. She is using zantac 150mg qd with good effect. In the past has tried Nexium, Prilosec, Protonix, Prevacid with no effect. No dysphagia, odynophagia, However, at times can feel a slow passage of solids. No n/v, chest pain or ent concerns. No early satiety. Post- prandial fullness. No significant bloat, distention, but notes quite a bit of gas. History Social History ??? Marital Status: Single Spouse Name: N/A Number of Children: N/A ??? Years of Education: N/A Occupational History ??? Not on file. Social History Main Topics ??? Smoking status: Current Everyday Smoker ??? Smokeless tobacco: Not on file ??? Alcohol Use: Not on file ??? Drug Use: Not on file ??? Sexually Active: Not on file Other Topics Concern ??? Not on file Social History Narrative ??? No narrative on file Medical History: anxiety, sinus Surgical History: wrist, sinus, D&C Family History: grandfather: bleeding gastric ulcers Allergies Allergen Reactions ??? Penicillins Nausea And Vomiting ??? Aspirin CIS - severe nose bleeds ??? Pseudoephedrine Hcl CIS - racing heart, drooling Current outpatient prescriptions:RANITIDINE HCL (ZANTAC ORAL), Take 1 tablet by mouth as needed., Disp: , Rfl: ; ibuprofen (ADVIL;MOTRIN) 600 mg tablet, 600MG = 1 Tablet(s), PO, Q6H, Disp: , Rfl: ; PARoxetine (PAXIL) 20 mg tablet, 20MG = 1 Tablet(s), PO, Once daily, Disp: , Rfl: Review of Systems - Negative except General: Cardiac: Resp: GI: see above : MS: Neuro: Skin: Psyche: Sleep: Endo: Physical Exam: soft, nontender, no mass, organomegaly Impression: 1. IBS-D: fodmap diet and other dietary recommendations. Probiotics. Imodium as directed. Colonoscopy. If testing normal, and believe anxiety plays a significant role with sx, can consider increasing paxil to 40mg qd. Or can consider smooth muscle relaxant such as levsin, bentyl. 2. Gerd: d/c zantac. Trial of dexilant 60mg qd, 30 minutes before breakfast. gerd diet and lifestylemodifications. Pt given samples. If medication effective pt will call and script will be called in. Upper endoscopy. If sx not controlled on ppi, consider oem and impedance testing on meds. 3. F/u with pt once results received. I spent a total of 50 minutes face to face with this patient; 32 minutes were spent counseling the patient in the medical problems described above. Sincerely, Benny Menchaca NP Section of Gastroenterology and Hepatology documented in this encounter Plan of Treatment Not on filedocumented as of this encounter Procedures Procedure Name Priority Date/Time Associated Diagnosis Comme nts TISSUE Routine 09/14/2012 11:00 AM IBS (irritable bowel Results for this TRANSGLUTAMINASE, EST syndrome) procedure are in IGA the results section. documented in this encounter Results Tissue transglutaminase, IgA (09/14/2012 11:00 AM EST) P athologist Signature TTG IgA Ab <4.0 <=3.9 u/ml [facility] Comment: Result Interpretation: Negative: ?<4 U/mL Weak Positive: ??4-10 U/mL Positive: ?>10 U/mL Specimen Anatomical Collection Method Collection Time Receive d Time (Source) Location / / Volume Laterality Blood specimen 09/14/2012 11:00 2 2:01 (specimen) AM EST PM EST Resulting Agency Comment Spec In Lab Ben Gabriel MD IMMUNOLOGY ORDERABLES Performing Organization Address City/State/[place] [address] [facility] documented in this encounter Visit Diagnoses Diagnosis IBS (irritable bowel syndrome) - Primary Irritable bowel syndrome documented in this encounter Care Teams Information Technology Assistant Relationship Specialty Start Date End Date More Parr MD PCP - General 06/17/12 [address] [place] [address] documented as of this encounter
--- OUTSIDE RECORDS SUMMARY | 2022-08-09 00:53 | XMS_ITS | Encounter Summary ---
:1980 Author Organization [facility] Address [address] [place] [address] Care Team Providers Name Role Phone Kristina Shook LUZ MARIA Primary Care Provider Encounter Details Date Type Department Care Team Description 12/04/2021 Lab Requisition [facility] Eileen Vaca E ncounter for other Pathology & [employer] general examination Laboratory Medicine [address] [place], [place] [address] [facility] [address] [place] [address] Social History Tobacco Use Types Packs/Day Years Used Date Never Assessed Sex Assigned at Date Recorded Not on file documented as of this encounter Plan of Treatment Not on filedocumented as of this encounter Procedures Procedure Name Priority Date/Time Associated Comments Diagnosis PAP TEST Today 12/03/2021 3:30 Encounter for other Resul ts for this EST general examination procedur e are in the results section. HUMAN PAPILLOMAVIRUS Today 12/03/2021 3:30 Encounter for ot er Results for this (HPV) DETECTION-HIGH EST general examination procedure are in RISK TYPES the results section. documented in this encounter Results HUMAN PAPILLOMAVIRUS (HPV) DETECTION-HIGH RISK TYPES (12/03/2021 3:30 EST) Human Papillomavirus NegativeComment: No Negative [facility] (HPV) Detection-High E6 or E7 mRNA is CENTER LABORATOR Y Types detected from HPV SERVICES types 16,18,31,33,35,39,45 ,51,52,56,58,59,66, and 68 by technical instructor course developer mediated amplification. Specimen Pap Test - Cervix and/or Endocervix Performing Organization Address City/State/[facility] Code Phon e Number [facility] [address] [place] [address] SERVICES PAP TEST (12/03/2021 3:30 EST) Specimens A. Cervix and/or [facility] Endocervix , ThinPrep CENTER Imaging System with LABORATORY Manual Evaluation SERVICES Specimen Adequacy Satisfactory for [facility] Evaluation - CENTER transformation zone LABORATORY component present SERVICES General Negative for [facility] Categorization intraepithelial CENTER lesion or malignancy LABORATORY SERVICES Descriptive Shift in caryn [facility] Diagnosis present suggestive of CENTER bacterial vaginosis. LABORATORY SERVICES Attestation . [facility] signed by SOLANGE Duque CT(ASCP ) on SERVICES 12/13/2021 at 09 00 Clinical History SEE BELOW [facility] HPV The result for the Human Pap illomavirus (HPV) Detection-High Risk Types is Negative. No E6 or E7 mRNA is detected from HPV types 16,18,31,33,35,39,45,51,52,56,58,59,66, and 68 by technical instructor course developer mediated [facility] amplification.Testing was pe rformed on specimen [id number] and was resulted on 12/13/2021 0734 EST by GERALD, LAB INSTRUMENT RESULTS IN [facility] SERVICES Performing Lab [facility] Scanned Images [facility] Specimen Pap Test - Cervix and/or Endocervix Performing Organization Address City/State/ZIP Code Phon e Number [facility] [address] [place] [address] SERVICES documented in this encounter Visit Diagnoses Diagnosis Encounter for other general examination documented in this encounter Care Teams Lamp Stack Developer Relationship Specialty Start Date End Date Kristina Shook NP PCP - General 07/18/09 [facility] [address] [place] [address] documented as of this encounter
--- OUTSIDE RECORDS SUMMARY | 2022-08-09 00:53 | XMS_ITS | Encounter Summary ---
:1980 Author Organization [facility] [place] [address] Care Team Providers Name Role Phone More Parr MD Primary Care Provider Reason for Visit Reason Comments Skin Check Consultation (Routine) - Closed Specialty Diagnoses / Procedures Referred By Contact Refer red To Contact Dermatology Diagnoses multiple skin lesions Mauro Bassett PA [facility] Dermatology [address] [place] [address] [place] [address] Fax: Referral ID Status Reason Start Date Expiration Date Visits V isits Requested Authorized [id number] Closed Consult & 07/27/2015 07/26/2016 1 1 Test Connection Center Encounter Details Date Type Department Care Team Description 08/28/2015 Office Visit Dermatology at [facility] Ina Medina MD Seborrheic keratosis, inflamed; [place] Seborrheic keratosis; [address] Lentigines; [place] [address] [facility] Seborrheic dermatitis [phone] [address]-DERMATOLOGY [place], [place] [address] Social History Tobacco Use Types Packs/Day Years Used Date Current Every Day Smoker Sex Assigned at Date Recorded Not on file documented as of this encounter Progress Notes Gene Ayala MD - 09/02/2015 6:11 AM EST I directly supervised Dr. Ben Medina during this office visit. Dr. Medina presented the history and physical exam to me. I then saw and examined this patient with Dr. Medina. We reviewed the history and pertinent details and I confirmed the physical findings. I agree with the details of the history and phy sical exam as documented in Dr. Medina's note. The assessment and plan were formulated in discussion with me at the time of visit and I agree with them as documented. GENE AYALA MD FAAD Staff Physician Adam, Ben Jeronimo MD - 08/28/2015 10:17 AM EST Images from the original note were not included. DERMATOLOGY - NEW PATIENT NOTE Date of service: 08/28/2015 Kimani Perez : 1980 Dermatology Resident Note: Ben Medina MD Chief Complaint Patient presents with ??? Skin Check Ms. Kimani Perez is a 35 y.o. female. This is a new patient to me. Seen in consultation at the request of Mauro Bassett specifically for a full skin examination. HPI: Ms. Perez presents for a full skin examination. She states that she has multiple spots on her chest that her PCP would like examined. These are itchy and get sore at times. She has had some raised/rough lesions treated in the past with liquid nitrogen. She also has a rash around her nose, extending down her melolabial fold. This rash is recurrent, worse in the winter. It is occasionally itchy. She was given triamcinolone by another provider which she has been slathering on. She also has scalp pruritus. She uses sunscreen at times. Past Skin History: None Medical History: Patient Active Problem List Diagnosis Code ??? IBS (irritable bowel syndrome) K58.9 Medications: Current Outpatient Prescriptions on File Prior to Visit Medication Sig Dispense Refill ??? RANITIDINE HCL (ZANTAC ORAL) Take 1 tablet by mouth as needed. ??? ibuprofen (ADVIL;MOTRIN) 600 mg tablet 600MG = 1 Tablet(s), PO, Q6H ??? [DISCONTINUED] PARoxetine (PAXIL) 20 mg tablet 20MG = 1 Tablet(s), PO, Once daily No current facility-administered medications on file prior to visit. Allergies: Allergies Allergen Reactions ??? Diphenhydramine Palpitations ??? Penicillins Nausea And Vomiting ??? Aspirin CIS - severe nose bleeds ??? Pseudoephedrine Hcl CIS - racing heart, drooling Family History: Grandfather and father -unknown type of skin cancer Daughter - Eczema Review of Systems: General: Feels well Skin: As per HPI; no other skin concerns Examination: Constitutional: Patient was alert, well-appearing and in no noticeable distress. Skin: A total body skin exam except for areas covered by underwear was performed. This includes examination of the skin of the scalp, face, ears, neck, chest, axillae, left and right upper and lower extremities, hands and feet, abdomen, and except the areas covered by underwear were not examined. Buttocks was also examined with patient consent. Specific skin findings: 1. Nasolabial folds: Erythematous patches around left>right nasal alae 2. Forehead, shoulders, and back: 0.3-0.6cm medium-brown evenly pigmented, well- demarcated macules 3. Chest, right hand, left thigh: 0.4-0.6 cm pink-brown papules/plaque with waxy stuck on appearance. 4. Right posterior neck: Slightly inflamed 0.4-0.6 cm pink-brown plaque with waxy stuck on appearance. Diagnosis/Assessment/Treatment Plan: 1. Seborrheic dermatitis on face and scalp Prescriptions: Rx: Ketoconazole shampoo 2 % Apply everyday for 2 weeks. Then once or twice a week for maintenance. Pharmacy: [facility] Recommendations: ?? Discontinue use of triamcinolone on the face. ?? I advised OTC Hydrocortisone 1 % when flaring ?? Patient will call in 1 month if this is not resolving as expected. 2. Lentigines ?? Discussed benign nature of lesion and provided reassurance. No treatment necessary at this time. 3. Seborrheic keratosis ?? Discussed benign nature of lesion and provided reassurance. No treatment necessary at this time. ?? Discussed the cosmetic removal of these lesions. Patient is aware that payment in full would be expected at the time of treatment. 4. Inflamed Seborrheic Keratosis, upper back ?? Discussed benign nature of lesion and provided reassurance. ?? The nature of sun-induced photo-aging and skin cancers is discussed. Sun avoidance, protective clothing, and the use of 30-SPF sunscreens is advised. Observe closely for skin damage/changes, and call if such occurs. ?? Skin cancer brochure was given today. RTC in 1 year for full skin exam. Instructed to call for questions, concerns. I am documenting this encounter acting as the scribe for and in the presence of MD Darlene Garvey, Clinical Scribe I performed the above scribed service and agree with the accuracy of the documentation in this encounter. Reviewed and signed by Ben Medina MD Resident in Dermatology [facility] Patient seen and evaluated with staff performance solutions specialist: Gene Ayala MD Section of Dermatology [facility] documented in this encounter Plan of Treatment Not on filedocumented as of this encounter Visit Diagnoses Diagnosis Seborrheic keratosis, inflamed Inflamed seborrheic keratosis Seborrheic keratosis Other seborrheic keratosis Lentigines Other dyschromia Seborrheic dermatitis Seborrheic dermatitis, unspecified documented in this encounter Care Teams Floor Mechanic Relationship Specialty Start Date End Date More Parr MD PCP - General 06/17/12 [address] [place] [address] documented as of this encounter
--- OUTSIDE RECORDS SUMMARY | 2022-08-09 00:53 | XMS_ITS | Encounter Summary ---
:1980 [address] [facility] [place] [address] Care Team Providers Name Role Phone Kristina Shook APRN Primary Care Provider Encounter Details Date Type Department Care Team Description 09/17/2011 Hospital Encounter XRay at [address] [place] [address] Social History Tobacco Use Types Packs/Day Years Used Date Current Every Day Smoker Sex Assigned at Date Recorded Not on file documented as of this encounter Medications at Time of Discharge Medication Sig Dispensed Refills Start Date End Date RANITIDINE HCL (ZANTAC Take 1 tablet by 0 ORAL) mouth as needed. ibuprofen (ADVIL;MOTRIN) 600MG = 1 Tablet(s), 0 0 06/21/2010 600 mg tablet PO, Q6H PARoxetine (PAXIL) 20 mg 20MG = 1 Tablet(s), 0 08/28/2015 tablet PO, Once daily documented as of this encounter Plan of Treatment Not on filedocumented as of this encounter Visit Diagnoses Not on filedocumented in this encounter Care Teams Environmental Restoration Planner Relationship Specialty Start Date End Date Kristina Shook APRN PCP - General 09/11/10 06/16/12 documented as of this encounter
--- NOTE | 2022-08-09 07:45 | DI.US_ITS ---
Exam(s) US PELVIS EXAM: US PELVIS CLINICAL HISTORY: abnormal vaginal bleeding, Has IUD,n93.9 TECHNIQUE: Ultrasound of the pelvis was performed transabdominally. Patient apparently refused deleon svaginal study.. COMPARISON: US US ABDOMEN from 12/27/2021 FINDINGS: UTERUS: Nongravid and appears anteverted measuring 7 cm length Measures 7 cm length x 3.5 cm AP x 4 cm wide. There are no uterine fibroids.IUD is in satisfactory position in the endometrial canal. Endometrial thickness measures 2.4 mm. There is no fluid in the endometrial canal. CERVIX: There are no obvious nabothian cysts. RIGHT OVARY: Measures 2 x 1 x 1.3 cm No significant cysts nor masses evident in the right ovary. LEFT OVARY: Measures 2.0 x 1.0 x 1.3 cm No significant cysts nor masses evident in the left ovary. CUL-DE-SAC: No free fluid evident. IMPRESSION: 1. Normal appearing uterus and age-appropriate endometrium. 2. IUD is in satisfactory position in the endometrial canal. 3. No abnormal adnexal findings. DATA REPOSITORY:
== END 2022-08-09 01:11 ==
PROVIDERS: PCP Family Medicine; Visit Provider Nurse Practitioner Family
DX: N93.9 Abnormal uterine and vaginal bleeding, unspecified (principal)
CPT/HCPCS: 76856

== ENCOUNTER 2022-10-08 09:42 | Emergency (ER) | payer MEDICAID, SELFPAY ==
[2022-10-08 09:59] VITALS: BP 126/66; PULSE 76; RESP 18; TEMP 37.1; O2SAT 97
--- NOTE | 2022-10-08 10:37 | ED.GENADUL_ITS ---
Discharge Plan Disposition Patient Disposition: Home Condition: Stable Discharge Details Clinical Impression: Muscle spasm, Trapezius strain Primary Care Provider: Mauro Bassett ED Provider: Kaylee Cm Home Meds and New Rx's Prescriptions: New methylprednisolone [Medrol (Quinn)] 4 mg tablets,dose pack See Rx Instructions .ROUTE .COMPLEX Qty: 21 0RF Rx Instructions: orally per package directions cyclobenzaprine 10 mg tablet 10 mg PO TID PRNQty: 10 0RF oxycodone 5 mg capsule 5 mg PO BID PRNQty: 6 0RF Continued citalopram [Celexa] 40 mg tablet 40 mg PO DAILY citalopram [Celexa] 10 mg tablet 10 mg PO DAILY Mirena 20 mcg/24 hr (5 years) intrauterine device 1 insert IY ONCE naproxen [Naprosyn] 500 MG tablet 500 mg PO Q12H PRN Qty: 60 esomeprazole magnesium 40 mg capsule,delayed release(DR/EC) 40 mg PO DAILY fluticasone propionate 50 mcg/actuation spray,suspension 1 spray intranasal BID Rx Instructions: administer into each nostril sucralfate 1 gram tablet 1 g PO QACHS albuterol sulfate 90 mcg/actuation HFA aerosol inhaler 2 puff inhalation Q6H PRN nicotine [Nicoderm CQ] 14 mg/24 hr patch 24 hour 1 patch transdermal DAILY ibuprofen 200 mg tablet 600 mg PO Q8H PRN triamcinolone acetonide 0.025 % ointment 1 applic topical BID Discharge Instructions Instructions: Muscle Spasm (ED) Additional Instructions: Take ibuprofen 600 mg every 8 hours with food if this is a medication you can take Take Tylenol 650 mg every 4-6 hours for breakthrough pain You may take oxycodone, use this medication sparingly as it addictive, you should not drive for 8 hours after taking this medication And it can cause constipation May take Flexeril as needed for musculoskeletal pain, you should not drive for 8 hours after taking this medication Medrol will decrease inflammation Recheck in 3 to 5 days with persistent pain Like stage and range of motion as tolerated Referrals: Mauro Bassett PA [Primary Care Provider] - Discharge Data Discharge Date/Time-TO BE ENTERED AT DEPARTURE: 10/08/22 11:16 Medical Decision Making Patient is 42-year-old female with report of left shoulder and scapular pain for the past 2 weeks. States has been worsening over the past week denies known injury Reproducible tenderness on exam, trigger point injections with Marcaine performed with symptomatic improvement Placed on a small amount of opiate analgesia, muscle relaxation, risk of addiction reviewed Work note supplied Stretching encouraged Return precautions discussed and patient expressed understanding Did consider more ominous pathologies such as cardiac and pulmonary, however given vitals and clinical exam findings, low suspicion Recheck in 48 hours recommended Medical Records Medical records reviewed: Yes I reviewed the patient's medical records. HPI General Date/Time Provider Initiated Documentation: 10/08/22 10:16 . HPI Narrative: This 42-year-old female who is otherwise reportedly healthy presents with left back pain that worsens with movement for the past 2 weeks. Denies any trauma. Denies history of similar symptoms in the past. Denies chest pain or shortness of breath. Denies . Related Data Home Medications Medication Instructions Recorded Confirmed naproxen 500 mg tablet (Naprosyn) 500 mg PO Q12H PRN #60 tab-caps 04/15/13 08/18/18 citalopram 10 mg tablet (Celexa) 10 mg PO DAILY 08/18/18 08/18/18 citalopram 40 mg tablet (Celexa) 40 mg PO DAILY 08/18/18 10/08/22 levonorgestrel 20 mcg/24 hours (8 1 insert intrauterine ONCE 08/18/18 10/08/22 yrs) 52 mg intrauterine device (Mirena) albuterol sulfate 90 mcg/actuation 2 puff inhalation Q6H PRN 05/24/22 10/08/22 aerosol inhaler esomeprazole magnesium 40 mg 40 mg PO DAILY 05/24/22 10/08/22 capsule,delayed release fluticasone propionate 50 1 spray intranasal BID 05/24/22 10/08/22 mcg/actuation nasal spray,suspension ibuprofen 200 mg tablet 600 mg PO Q8H PRN 05/24/22 10/08/22 nicotine 14 mg/24 hr daily 1 patch transdermal DAILY 05/24/22 transdermal patch (Nicoderm CQ) sucralfate 1 gram tablet 1 g PO QACHS 05/24/22 10/08/22 triamcinolone acetonide 0.025 % 1 applic topical BID 05/24/22 10/08/22 topical ointment cyclobenzaprine 10 mg tablet 10 mg PO TID PRN #10 tabs 10/08/22 methylprednisolone 4 mg tablets in See Rx Instructions PO .COMPLEX 10/08/22 a dose pack (Medrol (Quinn)) #21 dose pk oxycodone 5 mg capsule 5 mg PO BID PRN #6 caps 10/08/22 Previous Rx's Medication Instructions Recorded cyclobenzaprine 10 mg tablet 10 mg PO TID PRN #10 tabs 10/08/22 methylprednisolone 4 mg tablets in See Rx Instructions PO .COMPLEX 10/08/22 a dose pack (Medrol (Quinn)) #21 dose pk oxycodone 5 mg capsule 5 mg PO BID PRN #6 caps 10/08/22 Allergies Allergy/AdvReac Type Severity Reaction Status Date / Time clindamycin Allergy Intermediate Verified 10/08/22 10:01 aspirin AdvReac Intermediate EPISTAXIS Verified 10/08/22 10:01 diphenhydramine HCl AdvReac Intermediate Rapid HR, Verified 10/08/22 10:42 [From Benadryl] drools pseudoephedrine HCl AdvReac Intermediate Rapid HR, Verified 10/08/22 10:42 [From Sudafed] drools Penicillins AdvReac Mild N&V Verified 10/08/22 10:42 General Stated Complaint: Orthopedic FOZIA: 4 Review of Systems All systems reviewed & are unremarkable except as noted in HPI and below PFSH All Active Problems (Updated 10/08/22 @ 10:57 by TREVOR Chase) Muscle spasm (Acute) Trapezius strain (Acute) Perioral dermatitis (Acute) IBS (irritable bowel syndrome) (Chronic) GERD (gastroesophageal reflux disease) (Chronic) Medical History (Updated 10/08/22 @ 10:57 by TREVOR Chase) Allergic fungal sinusitis (09/13/13) Allergic rhinitis due to pollen (10/09/15) Anxiety Breakthrough bleeding (04/05/13) Cellulitis (09/12/14) COVID-19 virus infection Encounter for routine checking of intrauterine contraceptive device (IUD) (10/20 12/29) Enlarged thyroid Eustachian tube anomaly, 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) Lentigines Postnasal drip (10/11/13) Seborrheic keratosis Tendinitis, de Quervain's Tobacco use disorder (08/21/15) Tonsillar hypertrophy (08/21/15) Surgical History (Updated 05/24/22 @ 06:58 by Rosalee Mcrae RN) H/O section H/O esophagogastroduodenoscopy (~10/2012) H/O sinus surgery History of colonoscopy (~10/2012) Family History Sister Cervical dysplasia Social History (Updated 08/17/18 @ 09:38 by Abida Membreno LPN) Smoking/Tobacco Use Status: Current every day Tobacco Type: cigarettes Smoking risk assessment performed?: Yes Drug use: Never Substance use type: does not use Do you feel safe at home: Yes Do you feel safe in your relationship?: Yes Female Reproductive History Menstrual control method: progestin IUCD (Mirena Lot # [id number] / Exp Date 12/2020) History History 3 Para 2 Hx # Term Pregnancies Multiple births Hx # Pregnancies Ectopic pregnancies AB induced Hx Number of Living Children AB spontaneous Exam Const General: cooperative, comfortable and no acute distress HENMT Head: normal to inspection Eyes Pupils: PERRL Neck Other: No midline tenderness Resp Effort & Inspection: normal respiratory effort Auscultation: clear to auscultation bilaterally Cardio Rate: regular rate Rhythm: regular rhythm Other: Distal pulses intact Back/Spine/Pelvis Back/spine/pelvis image: 1. Reproducible tenderness Neuro General: patient alert and patient oriented x3 Extrem Other: Neurovascularly intact Course Vital Signs Vital signs: Vital Signs Temperature 37.1 C 10/08/22 09:59 Pulse 76 10/08/22 09:59 Respiratory Rate 18 10/08/22 09:59 Blood Pressure 126/66 10/08/22 09:59 Pulse Oximetry 97 10/08/22 09:59 Temperature 37.1 C 10/08/22 09:59 Temperature Source Temporal Artery Scan 10/08/22 09:59 Pulse 76 10/08/22 09:59 Respiratory Rate 18 10/08/22 09:59 Respiratory Effort Non-Labored 10/08/22 10:03 Blood Pressure 126/66 10/08/22 09:59 Blood Pressure Position Sitting 10/08/22 09:59 Pulse Oximetry 97 10/08/22 09:59 Oxygen Delivery Method Room Air 12/20/22 09:59 Oxygen Flow Rate 0 10/08/22 09:59 Lab/Test Results Lab/Test Results: POC- Test(urine) Negative Procedures Other Description: 2 trigger point injections to left trapezius using 0.5% Marcaine, 10 cc, patient tolerated without incident PAWSS Have you Been Recently Intoxicated or Drunk Within the Last 30 days?: No Have you Ever Experienced Previous Episodes of Alcohol Withdrawal?: No Have you ever Experienced Withdrawal Seizures?: No Have you ever Experienced Delirium Tremens(DT)s?: No Have you ever undergone Alcohol Rehabilitation Treatment (i.e, inpt ot outpatient treatment programs)?: No Have you ever Experienced Blackouts?: No Have you ever Combined Alcohol with other Downers within the last 90 days?: No Have you ever Combined Alcohol with any other Substance of Abuse during the last 90 days?: No Positive Blood Alcohol level on Presentation? [PCS.BAL]: No Evidence of Increased Autonomic Activity (i.e. HR>120, tremor, sweating, agitation, nausea)?: No Result: 0
[2022-10-08] MEDS: Bupivacaine 0.5% Pres-Free 30 ML VIAL (11:17)
== END 2022-10-08 11:16 | disposition home or self-care (01) ==
PROVIDERS: Emergency Provider Physician Assistant; PCP Physician Assistant Medical
DX: M62.838 Other muscle spasm (principal); S46.812A Strain of other muscles, fascia and tendons at shoulder and upper arm level, left arm, initial encounter; X58.XXXA Exposure to other specified factors, initial encounter
CPT/HCPCS: 20552; 81025

== ENCOUNTER 2023-01-15 15:07 | Outpatient (REF) | payer MEDICAID, SELFPAY ==
--- NOTE | 2023-01-15 14:50 | ENDOMET_PTH ---
PATIENT: Kimani Perez LOC: [facility] U#:[id number] AGE/SX: 42/F ROOM: RE01/15/[address]: Jessica Novoa MD : [id number] BED: DIS: 01/15/2023 SPEC #: [id number] RECD: 01/15/23 17:35 STATUS: CLAUDE REQ #: [id number] MAGY: 01/15/23 14:[address]: Jessica Novoa DEPT: Surgical Specimen RECD BY: Kaylee Renteria ENTERED: 01/15/23 17:35 SP TYPE: Endomet OTHR DR: Mauro Bassett Tissues: 1 - ENDOMETRIUM BX/RUIZ Procedures: GROSS AND MICRO LEVEL 4 Comments: [id number]
== END 2023-01-15 15:08 | disposition home or self-care (01) ==
LOC: LBN 15:07
PROVIDERS: PCP Physician Assistant Medical; Visit Provider Obstetrics & Gynecology
DX: N85.01 Benign endometrial hyperplasia (principal); T38.5X5A Adverse effect of other estrogens and progestogens, initial encounter
CPT/HCPCS: 88142; 88305

== ENCOUNTER → 2023-09-02 00:09 | Outpatient (CLI) | payer MEDICAID, SELFPAY ==
--- NOTE | 2023-09-02 | DI.MAMMO_ITS ---
Exam(s) MAMMO SCREENING EXAM: MAMMO SCREENING CLINICAL HISTORY: Z12.31 Screening TECHNIQUE: Mammograms were interpreted according to the usual protocol including computer analysis w [employer] CAD system, tomosynthesis and C-view imaging. COMPARISON: None. Baseline examination. FINDINGS: The breasts are composed of heterogeneously dense fibroglandular densities, Breast Density category C . No suspicious masses or suspicious microcalcifications are seen. There are multiple bilateral circum scribed nodules representing cysts. Ultrasound recommended for further evaluation. No skin thickening or abnormal axillary lymph nodes are seen. IMPRESSION: BI-RADS Category 0 - Assessment Incomplete: Need additional imaging evaluation. Complete bilateral b reast ultrasound recommended for further evaluation of multiple bilateral circumscribed nodules.. Breast Density Category C, heterogeneously Dense. The mammogram demonstrates the patient's breast tissue is dense. Dense breast tissue is very common a nd is not abnormal but dense breast tissue can make it harder to find cancer on a mammogram. Also, de nse breast tissue may increase breast cancer risk. This information about the result of the mammogram report was provided to the patient to raise their awareness. Use this report when you speak with the patient about their risks for breast cancer, which includes their family history. At that time, you may recommend additional screening tests (Ultrasound or MRI) as they might be useful based on their r isk. A negative radiographic report should not delay biopsy if a dominant or clinically suspicious mass is present. Up to ten percent of cancers are not identified on mammography. A negative report may reinforce clinical impression. Adenosis and dense breasts may obscure an underlying neoplasm. False positive reports average 6 to 10%.
== END ==
PROVIDERS: PCP Physician Assistant Medical; Visit Provider Physician Assistant Medical
DX: Z12.31 Encounter for screening mammogram for malignant neoplasm of breast (principal)
CPT/HCPCS: 77063; 77067

== ENCOUNTER → 2023-09-04 03:43 | Outpatient (CLI) | payer MEDICAID, SELFPAY ==
--- NOTE | 2023-09-04 13:30 | DI.US_ITS ---
Exam(s) US BREAST LT COMPLETE US BREAST RT COMPLETE EXAM: US BREAST LT COMPLETE CLINICAL HISTORY: F/U MAMMO, R92.8, BILAT NODULES. TECHNIQUE: bilateral breast ultrasound. COMPARISON: MG MG MAMMO SCREENING from 09/02/2023 FINDINGS: RIGHT BREAST: Right breast US: Echotexture: Normal appearance of the glandular tissue. Shadowing: No suspicious foci. Cyst: 2.6 centimeter maximal dimension cyst 11 o'clock position 3 cm from the nipple. 2.2 centimeter s cyst 10 o'clock position 3 cm from the nipple. 1.8 centimeter cyst 8 o'clock position 6 cm from th e nipple. Adjacent 1.5 centimeter cyst. 3.2 centimeter cyst 7 o'clock position 6 cm from the nipple . Solid lesions: None seen. Ductal dilation: None. LEFT BREAST: Left breast ultrasound: Echotexture: Normal appearance of the glandular tissue. Shadowing: No suspicious foci. Cyst: 2.6 maximal dimension cyst 2 o'clock position 7 cm from the nipple. 3.1 centimeter cyst 3 o'cl ock position 8 cm from the nipple. 2.7 centimeters cyst 4 o'clock position 4 cm from the nipple. 2. 4 centimeter cyst 5 o'clock position 2 cm from the nipple. 2.3 centimeter cyst 6 o'clock position 2 cm from the nipple. Other smaller cysts. Solid lesions: None seen. Ductal dilation: None. IMPRESSION: 1. Right breast: Multiple cysts. No evidence of malignancy is noted. 2. Left breast: Multiple cysts. No evidence of malignancy is noted. 3. Unless there is more urgent need, follow-up screening mammography is recommended, as per [employer] guidelines. BI-RADS Category 2 - Benign Findings Breast Density - Category C - Heterogeneously dense A mammogram that demonstrates density of C or D indicates the patient's breast tissue is dense. Dense breast tissue is very common and is not abnormal, but dense breast tissue can make it harder to find cancer on a mammogram. Also, dense breast tissue may increase their breast cancer risk. This informa tion about the result of the mammogram report was provided to the patient to raise their awareness. U se this report when you speak with the patient about their risks for breast cancer, which includes th eir family history. At that time, you may recommend for more screening tests (Ultrasound or MRI) as t hey might be useful based on their risk. A negative radiographic report should not delay biopsy if a dominant or clinically suspicious mass is present. Up to ten percent of cancers are not identified on mammography. A negative report may reinforce clinical impression. Adenosis and dense breasts may obscure an underlying neoplasm. False positive reports average 6 to 10%. Patient will receive a letter notifying them of these results.
== END ==
PROVIDERS: PCP Physician Assistant Medical; Visit Provider Physician Assistant Medical
DX: N60.11 Diffuse cystic mastopathy of right breast (principal); N60.12 Diffuse cystic mastopathy of left breast; R92.333 Mammographic heterogeneous density, bilateral breasts
CPT/HCPCS: 76642